=== PATIENT | male | born 1930 | race Caucasian/White ===

== ENCOUNTER 2016-08-09 06:15 | Day surgery (SDC) | payer MEDICARE ==
[~2016-08-09] VITALS: Ht 180.3 cm; Wt 85.0 kg
[2016-08-09] VITALS (8 sets, daily range): BP systolic 104–135; BP diastolic 60–71; PULSE 61–68; RESP 8–16; O2SAT 93–98
[~2016-08-09 06:15] MED LIST: ACET325C PO; ASPI-973 PO; BISA-67 PO; BISA10SU61 RC; CHOL100043 PO; CYAN500 PO; DICL100G8 TOPICAL; EMOL226L TOPICAL; Gentamicin 80 mg/50 mL D5W IV ONE; Lactated Ringer's 1,000 ML IV SCH; MAGN400O4 PO; MULT1CAP33 PO; RIVA1PAT TRANSDERM; SPIR25TA3 PO; SULI200T79 PO
[2016-08-09] MEDS ORDERED: fentaNYL-PF 50 mCg/mL 2 mL Inj ONE (06:16)
[2016-08-09] MEDS ORDERED: Glycopyrrolate 0.2 mg/mL 5 mL Inj ONE (06:16)
[2016-08-09] MEDS ORDERED: Propofol 10,000 mCg/mL 20 mL Inj ONE (06:16)
[2016-08-09] MEDS ORDERED: Lactated Ringer's 1,000 ML IV ONE ×2 (07:22→09:32)
[2016-08-09] MEDS ORDERED: Vancomycin 1,000 mg/200 mL D5W IV ONE (07:23)
--- NOTE | 2016-08-09 07:46 | PCM.HPANE ---
Patient Data Surgeon Admitting Provider: Attending Provider:Maria E Billy MD Primary Care Physician:Becki Miller MD Other Provider:Debbi Kamara Anesthesia Reason for Visit Uretheral Stricture Ht/WT & BMI Height (Feet): 5 Height (Inches): 11.00 Weight (Kilograms): 85.000 Body Mass Index 26.00 Allergies Coded Allergies: pregabalin (Verified Allergy, Unknown, unknown, 08/04/16) gabapentin (Verified Adverse Reaction, Severe, hallucinations, 08/04/16) Uncoded Allergies: FLAMOA (Allergy, Unknown, 01/14/14) Past Anesthesia History Anesthesia History: Denies:: Anesthesia Reactions, Malignant Hyperthermia Diabetes History Hx Diabetes?: No MRSA MRSA: No Medications Blood Thinner: Aspirin Hypertension Medication: No Home Meds Incl Beta Josep: No Reported Medications Emollient Combination No.40 (Cetaphil)226 Gm Ejihmc416 Gm TP DAILY 08/08/16 Magnesium Hydroxide (Milk of Magnesia)400 Mg/5 Ml Oral.susp30 Ml PO DAILY PRN PRN 08/08/16 Bisacodyl (Dulcolax Rectal)10 Mg Supp.rect10 Mg RC DAILY PRN For Constipation 30 Days Ref 0 08/08/16 Bisacodyl (Dulcolax)5 Mg Tablet.dr5 Mg PO DAILY PRN For Constipation Ref 0 08/08/16 Diclofenac Gel (Voltaren Gel)100 Gm Tube1 Applic TP TID #1 TUBE 08/08/16 Rivastigmine Patch (Exelon Patch)4.6 Mg Patch4.6 Mg TRANSDERM DAILY 08/08/16 Acetaminophen 325 Mg Mltpqzb102-043 Mg PO Q4-6H PRN PRN 08/04/16 Cholecalciferol (Vitamin D3) (Vitamin D)1,000 Unit Tablet3,000 Unit PO QAM #1 BOTTLE Ref 0 09/15/15 Aspirin 81 Mg Njokjr29 Mg PO QAM Ref 0 08/09/15 Cyanocobalamin (Vitamin B12)1,000 Mcg Tablet1,000 Mcg PO QAM 10/13/14 Sulindac 200 Mg Jwpbkf058 Mg PO BID 01/15/14 Spironolactone 25 Mg Vqgktf39 Mg PO QAM 01/15/14 Multivitamin (Multivitamins)1 Each Capsule1 Each PO QAM 01/15/14 Discontinued Reported Medications Vancomycin 125 Mg Wwejiov459 Mg PO VARIES QID X 14 DAYS, THEN BID X 7 DAYS, THEN DAILY X 7 DAYS, THEN EVERY OTHER DAY X 7 DAYS, THEN EVERY 3 DAYS X 2 WEEKS 08/04/16 Sennosides (Senna)8.6 Mg Wguuoh46.2 Mg PO DAILY PRN For Constipation 08/04/16 Polyethylene Glycol 3350 (Miralax)17 Gm Powd.pack17 Gm PO DAILY PRN PRN 08/04/16 Nystatin (Nystop)60 Gm Zklacu33 Gm TP BID 08/04/16 Loratadine (Claritin)10 Mg Dbvrjqp73 Mg PO DAILY PRN PRN Ref 0 08/04/16 Fluocinonide 0.05% Cream 15 Gm Cream..g.1 Applic TP BID PRN PRN Ref 0 08/04/16 Fluoxetine 40 Mg Umgunvc89 Mg PO QAM Ref 0 09/15/15 Ferrous Sulfate 325 Mg Grwmeq105 Mg PO QAM 30 Days Ref 0 01/15/14 Docusate Sodium 250 Mg Dbpqelw518 Mg PO DAILY 30 Days Ref 0 01/15/14 Diclofenac Gel (Voltaren Gel)100 Gm Tube1 Applic TOPICAL TID apply to right knee TID for comfort 12/29/15 Discontinued Scripts Ciprofloxacin (Cipro)500 Mg Kunbxv338 Mg PO BID #14 TABLET Ref 0 Prov:Deejay Goldman MD 06/01/16 Rivastigmine Patch (Exelon Patch)4.6 Mg Patch1 Patch TOPICAL Q24H #30 Prov:Feliciano Sadler MD 01/04/16 History History of ENT Problems?: Yes HEENT History: Positive for:: Cataracts (S/P B/L EXTRACTIONS) Dysphagia (history of) Hearing Problem Sinus Problem (SEASONAL ALLERGIES HX NASAL FX) Hx of Heart Problems?: Yes Cardiovascular History: Positive for:: 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) Edema (chronic edema) Hypertension Peripheral Vascular (HX OF VENOUS STASIS ULCERATIONS LE'S) Valvular Heart Disease (MILD MR) Denies:: Congestive Heart Failure Heart Murmur (ECHO 10/2010 EF 55-60%) Hx of Respiratory Problem?: Yes Respiratory History: Positive for:: Pneumonia Denies:: Tuberculosis Use of C-PAP Machine Hx Neurologic Problems?: Yes Neurological History: Positive for:: Alzheimer's Disease (POSSIBLY) Dementia (WORSENING MEMORY) Parkinson's Disease TIA (2001) Other Neurological Pertinent: PERIPHERAL NEUROPATHY, dementia Hx of GI Problems?: Yes Gastrointestinal History: Positive for:: Gastrointestinal Bleeding (HX colitis R/T constipation) Hx of Problems?: Yes Genitourinary History: Positive for:: Urinary Tract Infection (uti, urine retension, chronic indwelling cateter) Other Pertinent History: URETHRAL STRICTURE=CURRENT PROBLEM ED VISIT 05/2016 FOR INABILTY TO REPLACE GEE CATH-CONSULT PER DR. BILLY Male Hx: Positive for:: Prostate Problems (enlarged prostate) Denies:: Scrotal Mass Testicular Surgery Skin History: Positive for:: History Skin Disorders? (h/o LLE cellulitis) Pressure Ulcers (CURRENT LT 5TH TOE-DR. 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) Hospitalization (multiple times for falls) Denies:: Endocrine Disease Thyroid Disease History Blood Transfusions: Denies:: Blood Transfuse Reaction Blood Transfusions Hx Diabetes: No Hx Alcohol Use: YesHx Substance Use: No Smoking Status: Former Smoker Have You Smoked inLast 12 mo: No Stop/Bang S-Snoring: Do You Snore Loudly: No T-Tired: feel tired, fatigued: Yes O-Obsered: Observed not breath: No P-Blood Pressure: treated: Yes B- Body Mass Index > 35 kg/m2: No A- Age over 50: Yes N- Neck Large Circumference: No G- Gender Male: Yes HUNTER Total Score: 4 HUNTER Risk Assessment: High Risk, =/>3 Yes HUNTER Category 4 OutPt Procedure: Yes Risk Assessment Category Category 1A: Patient has history of documented sleep apnea, and HAS NOT received any narcotic, sedative or anesthesia administration during this stay. Category 1B: Patient has history of documented sleep apnea, and HAS received any narcotic , sedative or anesthesia administration during this stay Category 2: Patient has SUSPECTED Obstructive Sleep Apnea, and HAS received any narcotic , sedative or anesthesia administration during this stay. Category 3: Patient has SUSPECTED Obstructive Sleep Apnea and HAS NOT received narcotic, sedative or anesthesia administration during this stay. Category 4: Outpatient in Procedural Areas with known sleep apnea or who screen positive for High Risk via the STOP/BANG questionnaire. Exam Exam Vital Signs Vital Signs Date Time Temp Pulse Resp B/P Pulse Ox O2 Delivery O2 Flow Rate FiO2 08/09/16 07:10 35.7 68 14 104/62 98 Room Air General Appearance: Alert, Oriented X3, Cooperative, No Acute Distress HEENT/AIRWAY: MP 2 Lungs: Clear to Auscultation, Normal Air Movement Heart: Exam Unremarkable, Regular Rate/Rhythm, No Murmurs/Rubs/Gallops Meds/Labs/Diagnostics Admission Meds Current Medications Lactated Ringer's (Lr) 1,000 ml @ ud STK-MED ONCE IV Last administered on t 07:22; Start 08/09/16 at 07:22; Stop 08/09/16 at 07:27; Status DC Plan Impression Patient chart reviewed, patient interviewed and anesthestic plan with risks, benefits, and alternatives discussed, and informed consent obtained. NPO Status: 08/08MN ASA Physical Status: ASA3 Severe Disease Anesthetic Plan: GA Bene/Risks/Altern/Consents: Yes HP Complete Prior to Induction: Yes Kota Mai MD Aug 09, 2016 07:46
[2016-08-09] MEDS ORDERED: Gentamicin 40 mg/mL 2 mL Inj IRRIGATION ONE (08:36)
[2016-08-09] MEDS ORDERED: Lactated Ringer's 500 ML IV PRN (08:44)
[2016-08-09] MEDS ORDERED: Lactated Ringer's 1,000 ML IV SCH (08:44)
[2016-08-09] MEDS ORDERED: fentaNYL-PF 50 mCg/mL 2 mL Inj IVPUSH PRN (08:45)
[2016-08-09] MEDS ORDERED: Phenylephrine 10,000 mCg/mL Inj IVPUSH PRN (08:45)
[2016-08-09] MEDS ORDERED: EPHEDrine Sulfate 50 mg/mL Inj IVPUSH PRN (08:45)
[2016-08-09] MEDS ORDERED: hydrALAZINE 20 mg/mL Inj IVPUSH PRN (08:45)
[2016-08-09] MEDS ORDERED: HYDROmorphone 1 mg/mL Inj IVPUSH PRN (08:45)
[2016-08-09] MEDS ORDERED: Dexamethasone 4 mg/mL Inj IVPUSH PRN (08:45)
[2016-08-09] MEDS ORDERED: Labetalol 5 mg/mL 4 mL Inj IV PRN (08:45)
[2016-08-09] MEDS ORDERED: MetoCLOpramide 5 mg/mL 2 mL Inj IVPUSH PRN (08:45)
[2016-08-09] MEDS ORDERED: Ondansetron 2 mg/mL 2 mL Inj IVPUSH PRN (08:45)
[2016-08-09] MEDS ORDERED: Atropine 0.4 mg/mL Inj IVPUSH PRN (08:45)
[2016-08-09] MEDS ORDERED: Phenazopyridine 97.5 mg Tablet PO PRN (09:10)
[2016-08-09] MEDS ORDERED: HYDROcodone-APAP 5-325 mg Tablet PO PRN (09:10)
[2016-08-09] MEDS ORDERED: Ondansetron 8 mg ODT Tablet PO PRN (09:10)
--- NOTE | 2016-08-09 09:32 | PCM.ANEP1 ---
Post Anesthesia Phase 1 PACU Phase 1 Assessment Vital Signs Vital Signs Date Time Temp Pulse Resp B/P Pulse Ox O2 Delivery O2 Flow Rate FiO2 08/09/16 09:25 65 12 105/60 93 Room Air 08/09/16 09:20 63 12 113/63 93 Room Air 08/09/16 09:15 64 8 116/63 95 Room Air 08/09/16 09:10 36.5 61 13 135/71 97 Simple Mask 6 08/09/16 07:10 35.7 68 14 104/62 98 Room Air Anesthetic Administered: GA Level of Alertness: Awake, talking MIRANDA's with Equal Strength: Yes Pain: No Nausea or Vomiting: No Lungs: Clear to Auscultation, Normal Air Movement Summary doing quite well mentally considering his pre op dementia Kota Mai MD Aug 09, 2016 09:32
--- NOTE | 2016-08-09 12:35 | PCM.ANEP2 ---
Post Anesthesia Evaluation ASA/CMS Post Anesthesia VS in Patient's Normal Range?: Yes Resp Stable; Airway Patent?: Yes CV Function & Hydration Stable: Yes Mental Status Recovered?: Yes Pain control Satisfactory?: Yes N/V Control Satisfactory?: Yes Kota Mai MD Aug 09, 2016 12:35
--- NOTE | 2016-08-10 14:00 | OP ---
[address] [address] OPERATIVE REPORT PATIENT: SANTY CACERES : 1930 MR#: [id number] ADMIT: 08/09/2016 JOB ID: [id number] DATE OF SURGERY: 08/09/2016 PROCEDURE NAME: 1. Direct visual internal urethrotomy. 2. Gentamicin irrigation. SURGEON: Maria E Billy MD. ANESTHESIA: General. PREOPERATIVE DIAGNOSIS(ES): 1. Urethral stricture. 2. Urinary retention. 3. History of bladder infection. POSTOPERATIVE DIAGNOSIS(ES): 1. Urethral stricture. 2. Urinary retention. 3. History of bladder infection. INDICATIONS: The patient is an 86-year-old gentleman with a history of difficult catheter placement, known urethral stricture disease, chronic indwelling Biswas catheter, presenting at least twice to the emergency department when his [facility] was unable to catheter him and requiring a flexible cystoscopy with some difficulty to get a catheter in over a wire. He was treated with culture-specific antibiotics prior to his surgery with plans to in irrigate with a gentamicin solution at the time of the procedure. PROCEDURE IN DETAIL: After appropriate informed consent was obtained, the patient was brought to the operating room. He received IV culture-specific antibiotics. SCD were placed. Adequate general anesthesia was induced. He was carefully placed in the dorsal lithotomy position. All pressure points carefully padded. Cleaned, prepped, and draped in the usual sterile fashion. First, a wire was advanced through the indwelling catheter, which was then removed, and a 17-[place] cystoscope was introduced into the patient's urethra to get up to the level several narrowed area within the bulbar urethra and more proximal. We then changed out to the direct vision sheath, and this was advanced up to the areas of narrowing leaving the Amplatz Super Stiff wire in as a safety wire. We incised extensively at the 12 o'clock position throughout the area that was narrowed in order to get the urethra widely opened. There was some mild to moderate bleeding. Once the urethra was nicely opened, we irrigated clots out. Gentamicin solution was used throughout the case. We then removed the cystoscope and introduced a 22-[place]ill tip catheter over the wire. We removed the wire itself, inflated the balloon and leaving the catheter in good condition. We then irrigated the bladder out further with another 1500 cc of gentamicin solution to remove the last of the clots. Urethra was irrigated out copiously with this as well, leaving the catheter ultimately to gravity drainage with light pink urine. The patient tolerated the procedure very well. He was awakened and taken in stable condition to the postanesthesia care unit.
== END 2016-08-09 23:59 | disposition home or self-care (01) ==
LOC: SAS 06:15
PROVIDERS: ATTEND Urology
DX: N35.9 Urethral stricture, unspecified (principal); R33.9 Retention of urine, unspecified; Z87.440 Personal history of urinary (tract) infections; N40.1 Benign prostatic hyperplasia with lower urinary tract symptoms; F03.90 Unspecified dementia, unspecified severity, without behavioral disturbance, psychotic disturbance, mood disturbance, and anxiety; I10 Essential (primary) hypertension; M19.90 Unspecified osteoarthritis, unspecified site; G60.9 Hereditary and idiopathic neuropathy, unspecified; E66.9 Obesity, unspecified; Z79.82 Long term (current) use of aspirin; Z87.891 Personal history of nicotine dependence
CPT/HCPCS: 52276; C1729; J1580; J3010; J7120

== ENCOUNTER 2016-09-13 10:17 | Inpatient (IN) | payer MEDICARE ==
[2016-09-13] VITALS (8 sets, daily range): BP systolic 100–129; BP diastolic 52–74; PULSE 101–123; RESP 16–36; O2SAT 91–96
[~2016-09-13] VITALS: Ht 167.6 cm; Wt 89.4 kg
[~2016-09-13 10:17] MED LIST changes: -Gentamicin 80 mg/50 mL D5W IV ONE; -Lactated Ringer's 1,000 ML IV SCH
[2016-09-13] MEDS ORDERED: 0.9% Sodium Chloride 1,000 ML IV ONE (10:23)
[2016-09-13] MEDS ORDERED: Albuterol-Ipratropium 3 mL Inhalation Solution NEB ONE ×2 (10:25→10:35)
--- NOTE | 2016-09-13 10:26 | ED.REPORT ---
HPI-Altered Mental Status Date of Service Sep 13, 2016 ED Provider: Moo Fay DO The patient is an 86 year old male with history of GI bleeds, UTI, diabetes, dementia, and Parkinson's disease, who was brought to the emergency department by EMS for altered mental status. The patient lives at [facility] and is normally up moving around and talking. He became altered sometime yesterday but the timing is unclear. Medics reports BP of 122/83, HR 120, O2 sat of 88 on 2 L improved to 93 on nonrebreather. The patient is unable to provide any history at this time. The patient is DNR. Nursing Notes Stated Complaint: ALTERED MENTAL STATUS Nursing Notes Reviewed: Yes Allergies: Coded Allergies: pregabalin (Verified Allergy, Unknown, unknown, 09/13/16) gabapentin (Verified Adverse Reaction, Severe, hallucinations, 09/13/16) Uncoded Allergies: FLAMOA (Allergy, Unknown, 01/14/14) Scheduled Aspirin (Aspirin) 81 Mg Tablet 81 MG PO QAM Cholecalciferol (Vitamin D3) (Vitamin D) 1,000 Unit Tablet 3,000 UNIT PO QAM Cyanocobalamin (Vitamin B12) 1,000 Mcg Tablet 1,000 MCG PO QAM Diclofenac Gel (Voltaren Gel) 100 Gm Tube 1 APPLIC TOPICAL TID apply to rt.knee for comfort Rivastigmine Patch (Exelon Patch) 4.6 Mg Patch 4.6 MG TRANSDERM DAILY Spironolactone (Spironolactone) 25 Mg Tablet 25 MG PO QAM Sulindac (Sulindac) 200 Mg Tablet 100 MG PO BID Scheduled PRN Acetaminophen (Acetaminophen) 325 Mg Capsule 325-650 MG PO Q4-6H PRN PRN PRN Bisacodyl (Dulcolax) 5 Mg Tablet.dr 5 MG PO DAILY PRN PRN For Constipation Bisacodyl (Dulcolax Rectal) 10 Mg Supp.rect 10 MG RC DAILY PRN PRN For Constipation Emollient Combination No.40 (Cetaphil) 226 Gm Lotion 1 APPLIC TOPICAL DAILY PRN PRN dry skin Magnesium Hydroxide (Milk of Magnesia) 400 Mg/5 Ml Oral.susp 30 ML PO DAILY PRN PRN PRN General Time Seen by MD: 10:18 Chief Complaint Decreased responsiveness, Not acting right Hx Obtained From: EMS Unable to Obtain Hx: Patient condition Arrived By: Ambulance Sudden in Onset?: Yes Onset Occurred: Yesterday Symptom Duration: Since onset Progression since Onset: Constant Recent Healthcare: No recent hospitalization Past Medical History Past Medical History Notes: Past Medical History 1. 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 2. Bilateral foot neuropathy, specifics unknown. 3. Depression. 4. Back surgery in 1984. 5. Known carotid stenosis. 6. Reported B12 deficiency. 7. Chronic edema with stasis changes. 8. History of left lower extremity cellulitis. 9. Bad varicose veins. 10. Known to have frequent falls. 11. Parkinsonism 12. Chronic Obstructive Uropathy, BPH (chronic Biswas) 13. ho recurrent C Diff Reports: Diabetes mellitus Reports: GI bleed, Urinary tract infection Past Surgical History right hip replacement Reports: Back/neck surgery Family History Noncontributory Smoking History Former Smoker Social History POLST indicates DNR in setting of arrest, otherwise limited interventions (dated 09-03-15) Resides at [facility] Alcohol Use: Denies alcohol use Other Social History: Good social support, [place], Local resident Occupation Retired trustee of estate Ambulatory Status Independent Review of Systems Unable to Obtain ROS Patient condition, Mental status Physical Exam Initial Vital Signs Vital Signs (First) Date Time Temp Pulse Resp B/P Pulse Ox O2 Delivery O2 Flow Rate FiO2 09/13/16 10:20 36.8 119 28 129/74 91 Room Air 09/13/16 11:15 7 Initial VS: Reviewed Extremities: No swelling, No tenderness Skin: Warm, Dry, No cyanosis Alertness: Positive: Confused, Responds to pain stimuli Head / Eyes: Atraumatic, Normocephalic, PERRL, EOMI Neck: Full range of motion, No midline vertebral tend Respiratory / Chest: Breath sounds = bilat, No respiratory distress, No rhonchi , No wheezing Rales / Rhonchi: Positive: Rales diffuse Cardiovascular: Regular rhythm, Heart sounds NL, No gallop, No murmurs, No rubs , Peripheral circulation NL Heart Rate / Rhythm: Positive: Tachycardia Neurologic: No motor deficits, No sensory deficits Mental Status: Positive: Confused Disoriented, altered. No focal findings. Face symmetric. Motor and sensory intact to all 4 extremities. ENT: Airway patent What appears to be coffee ground emesis in the corner of his mouth. Abdomen: No hernia, No palpable mass, No pulsatile mass Bowel Sounds / Distention: Positive: Bowel sounds tympanitic, Distention moderate Rectum / Perineum: Atraumatic, No gross blood Soft stool in the rectal vault. Gastric contents positive for occult blood on gastrocult Interpretation & Diagnostics Lab Results Interpretation Result Diagram: 09/13/16 1250 09/13/16 1020 Test 09/13/16 10:20 09/13/16 12:50 White Blood Count 7.4th/mm3 (3.8-10.1) Red Blood Count 5.61mil/mm3 (4.40-5.80) Mean Corpuscular Volume 84.1fL (81-100) Mean Corpuscular Hemoglobin 28.2pg (27.0-35.0) Mean Corpuscular Hemoglobin Concent 33.5% (32.0-37.0) Red Cell Distribution Width 14.4% (12.3-15.4) Platelet Count 182bil/L (150-400) Neutrophils (%) (Auto) 88.8% (40-74) Lymphocytes (%) (Auto) 5.7% (14-46) Monocytes (%) (Auto) 5.3% (4-12) Eosinophils (%) (Auto) 0% (0-5) Basophils (%) (Auto) 0.1% (0-3) Sodium Level 138mEq/L (134-144) Potassium Level 4.0mEq/L (3.5-5.2) Chloride Level 99mEq/L (97-108) Carbon Dioxide Level 21mmol/L (18-29) Blood Urea Nitrogen 35mg/dL (8-27) Creatinine 0.67mg/dL (0.76-1.27) Estimat Glomerular Filtration Rate 120mL/min (>59) Glucose Level 195mg/dL (60-99) Lactic Acid Level 2.2mmol/L (0.4-2.0) Calcium Level 9.7mg/dL (8.5-10.1) Magnesium Level 1.8mg/dL (1.6-2.6) Total Bilirubin 1.1mg/dL (0.0-1.2) Aspartate Amino Transf (AST/SGOT) 23U/L (0-50) Alanine Aminotransferase (ALT/SGPT) 15U/L (0-44) Alkaline Phosphatase 114U/L (25-160) Troponin T 0.010ug/L (0.0-0.011) Pro-B-Type Natriuretic Peptide 367.3pg/mL (0-486) Total Protein 7.3g/dL (6.4-8.4) Albumin 4.0g/dL (3.4-5.0) Procalcitonin 0.29ng/mL (0.00-0.08) Hemoglobin 14.0g/dL (13.8-17.2) Hematocrit 42.0% (41.0-50.0) ECG Interpretation ECG Interpretation: Sinus tachycardia LAFB Nonspecific ST changes Similar to previous taken on 12/29/2015 Time: 10:35 Interpreted by: ED physician X-Ray Chest Interpretation Chest Xray Interpretation: IMPRESSION: Left basilar patchy airspace opacity which could represent atelectasis, aspiration or pneumonia Dictated by: Fior Garcia MD, PhD on 09/13/2016 at 11:22 Interpretation / Wet Read by: Interpret - Radiologist X-Ray Abdominal Interpretation IMPRESSION: Left basilar patchy airspace opacity which could represent atelectasis, aspiration or pneumonia Dictated by: Fior Garcia MD, PhD on 09/13/2016 at 11:22 Interpretation / Wet Read by: Interpret - Radiologist CT Head Interpretation IMPRESSION: No acute intracranial disease process. Dictated by: Fior Garcia MD, PhD on 09/13/2016 at 10:49 Study: Head CT no contrast Interpretation / Wet Read by: Interpret - Radiologist CT Abd / Pelvis Interpretation IMPRESSION: 1. Fecal impaction within the rectum. There is mild associated rectal thickening, consistent with proctitis. There is moderate to severe associated distention of the rectum and distal sigmoid colon. 2. Normal appendix. 3. Bibasilar pneumonia. 4. 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 Dictated by: Jose Antonio Mccarty M.D. on 09/13/2016 at 12:25 Interpretation / Wet Read by: Interpret - Radiologist Re-Eval/Medical Decision Med Decision/Clinical Course Family patient has altered mental status likely due to infection, he is nonfocal there are no obvious stroke findings and brain CT is negative. He has bibasilar pneumonia as well as an upper GI bleed. He is maintaining a normal blood pressure with IV fluids and normal oxygenation with nasal cannula after having received multiple nebulizer treatments. CT scan shows reported fecal impaction however he has soft stool in the rectal vault. Patient will be admitted on broad-spectrum antibiotics and a Protonix drip. Source of Hx: Old records, EMS Re-Evaluation/Progress : Time of Eval: 11:30 Re-Evaluation/Progress Note: Rechecked the patient. He is more alert. Discussed plan for admission. Consultation #1: Referral / Consult Name: MyronBenji oscar Consulted With: Hospitalist Call Returned at: 12:59 Supervisor [employer]: Will see patient, Agrees with eval, Agrees with plan, Accepts admit Consultation #2: Referral / Consult Name: Joelle Luz MD Call Returned at: 13:28 [employer]visor [employer]: Will see patient, Agrees with eval, Agrees with plan Note: Spoke with the on-call dairy and food laboratory assistant. He agrees to consult. Recommends PPI drip and following the H&H. Counseled Regarding: Diagnosis, Lab results, Need for admission Patient Discharge & Departure Impression: Primary Impression: Altered mental status Altered mental status type: unspecified Qualified Code: R41.82 - Altered mental status, unspecified Additional Impressions: Pneumonia Pneumonia type: due to unspecified organism Laterality: bilateral Lung location: lower lobe of lung Qualified Code: J18.9 - Pneumonia, unspecified organism Sepsis Sepsis type: sepsis due to unspecified organism Qualified Code: A41.9 - Sepsis, unspecified organism Hypoxia Upper GI bleed Disposition: ADMITTED TO HOSPITAL Discharge Condition All VS Reviewed: Yes Condition: Stable Referrals: Becki Miller MD (PCP) Scribe Attestation Portions of this note were transcribed by Kenia Mitchell. I, Dr. Fay personally performed the history, physical exam and medical decision-making; I reviewed and confirmed the accuracy of the information in the transcribed note. Signed by: Rodri Gaspar, 09/13/2016 at 1345. copies to: Becki Miller MD, Timothy S DO Sep 13, 2016 10:26 Kenia Mitchell Sep 13, 2016 10:28
[2016-09-13 10:38] LABS: BASOPHILS % (AUTO) 0.1 % (0-3); EOSINOPHILS % (AUTO) 0 % (0-5); MONOCYTES % (AUTO) 5.3 % (4-12); Mean Corpuscular Hemoglobin 28.2 pg (27.0-35.0); Mean Corpuscular Volume 84.1 fL (81-100); NEUTROPHILS % (AUTO) 88.8 % (40-74); Platelet Count 182 bil/L (150-400)
--- NOTE | 2016-09-13 10:52 | DRSVH ---
PROCEDURE: CT BRAIN WITHOUT CONTRAST ([id number]) INDICATIONS: Acute decrease level of consciousness. TECHNIQUE: Noncontrast 4.5 mm thick angled axial sections acquired from the foramen magnum to the vertex, with c oronal reformats. COMPARISON: [facility], CT, BRAIN W/O CONTRAST, 07/29/2014, 2:31. [facility] , CT, BRAIN W/O CONTRAST, 01/15/2014, 2:09. [facility], CT, BRAIN W/O CONTRAST, 07/26/2013 , 20:00. CT, BRAIN W/O CONTRAST, 10/07/2010, 21:48. CT, BRAIN W/O CONTRAST, 08/21/2010, 10:55. CT, B RAIN W/O CONTRAST, 05/01/2010, 8:01. MR, STROKE PROTOCOL (PNL), 01/12/2010, 20:45. CT, BRAIN W/O CON TRAST, 01/12/2010, 10:59. [facility], CT, BRAIN W/O CONTRAST, 01/05/2010, 8:44. FINDINGS: Image quality: Excellent. CSF spaces: Basal cisterns are patent. No extra-axial fluid collections. The ventricles are symmet slim in size and shape. Brain: No intracranial bleeds or masses. There is cerebral volume loss for age, with resultant vent ricular and sulcal prominence. There are periventricular and deep white matter chronic small vessel ischemic changes. There is intracranial internal carotid artery atherosclerosis. Skull and face: Calvarium and visualized facial bones appear intact, without suspicious lesions. Sinuses: Visualized sinuses and mastoids are clear. IMPRESSION: No acute intracranial disease process. Dictated by: Fior Garcia MD, PhD on 09/13/2016 at 10:49 Approved by: Fior Garcia MD, PhD on 09/13/2016 at 10:50
[2016-09-13 11:12] LABS: TROPONIN T 0.01 ug/L (0.0-0.011)
[2016-09-13 11:23] LABS: Magnesium 1.8 mg/dL (1.6-2.6)
--- NOTE | 2016-09-13 11:24 | DRSVH ---
PROCEDURE: X-RAY ABDOMEN DECUBITUS, LEFT INDICATIONS: hypoxia, abd distention TECHNIQUE: One view of the abdomen acquired. COMPARISON: None. FINDINGS: Surgical changes and devices: None. Bowel: Bowel gas pattern nonspecific Soft tissues: No suspicious abdominal calcifications. Visualized solid organ contours appear normal in size. Bones: No suspicious bony lesions. IMPRESSION: No free air identified. Nonspecific bowel gas pattern. Patient's symptoms persist or wors en, then repeat imaging or advanced imaging such as CT scan is warranted. Dictated by: Fior Garcia MD, PhD on 09/13/2016 at 11:21 Approved by: Fior Garcia MD, PhD on 09/13/2016 at 11:22
--- NOTE | 2016-09-13 11:25 | ABG ---
DateTimeAnalyzed 11:18:00 -_ pH ____7.451 - 7.350 7.450 pCO2 ___37.3__ -mmHg 35.0 45.0 pO2 ___67.9__ -mmHg 70.0 100 HCO3- ___25.6__ -mmol/L 22.0 26.0 ABE ____2.2__ -mmol/L -2.0 2.0 tHb ___15.8__ -g/dL 12.0 18.0 O2Hb ___92.1__ -% 95.0 COHb ____1.7__ -% 1.5 MetHb ____0.8__ -% 0.4 1.5 sO2 ___94.5__ -% 25.0 FIO2 ___60.0__ -% Drawn By gj - Device 2 L/M 6 - Oxygen Device 2 __CANNULA - Date/Time Notified____ 11:24:00 -_ Spontaneous_RR ___36.0__ -b/min Liter_Flow ____9.0__ -L/min Oxygen Device 1 NEBULIZER - Notified Whom __OKELLEY - B 761 -mmHg tO2 ___20.4__ -Vol% Oj test _Positive -
--- NOTE | 2016-09-13 11:25 | DRSVH ---
PROCEDURE: X-RAY CHEST ONE VIEW ([id number]) INDICATIONS: HYPOXIA, ABDOMEN DISTENTION TECHNIQUE: One view of the chest was acquired. COMPARISON: [facility], CR, XR CHEST 1VW (PORTABLE), 12/29/2015, 9:39. FINDINGS: Surgical changes and devices: None. Lungs and pleura: No pleural effusions or pneumothorax. Patchy opacity noted in the left lung base w hich could represent atelectasis, aspiration or pneumonia. Mediastinum: Mediastinal contours appear normal. Heart size is normal. Bones and chest wall: No suspicious bony lesions. Overlying soft tissues appear unremarkable. IMPRESSION: Left basilar patchy airspace opacity which could represent atelectasis, aspiration or pne [facility] Dictated by: Fior Garcia MD, PhD on 09/13/2016 at 11:22 Approved by: Fior Garcia MD, PhD on 09/13/2016 at 11:23
[2016-09-13] MEDS ORDERED: Linezolid Inj 600 MG in IV Premix 1 EACH IV ONE (11:30)
[2016-09-13] MEDS ORDERED: Piperacillin-Tazo 3.375 Gm Inj 3.375 GM in Dextrose 5% Minibag Plus 50 ML IV ONE (11:30)
[2016-09-13] MEDS ORDERED: levoFLOXacin Inj 750 MG in IV Premix 1 EACH IV ONE (11:30)
[2016-09-13] MEDS ORDERED: Pantoprazole Inj 80 MG, Pharmacy To Mix 1 EA in 0.9% Sodium Chloride 80 ML IV ONE ×2 (12:25)
[2016-09-13] MEDS ORDERED: Pantoprazole 4 mg/mL 10 mL Inj IVPUSH ONE (12:25)
--- NOTE | 2016-09-13 12:30 | DRSVH ---
PROCEDURE: CT ABDOMEN AND PELVIS WITH CONTRAST ([id number]) INDICATIONS: abd distention, sepsis TECHNIQUE: After the administration of intravenous contrast, 5 mm thick sections acquired from the diaphragm to the symphysis. 5 mm coronal and sagittal reformats were acquired. For radiation dose reduction, the following was used: automated exposure control, adjustment of mA and/or kV according to patient siz e. COMPARISON: [facility], CT, CT ABD PELVIS W CON, 08/09/2015, 11:15. [facility], CT, ABD/PELVIS W/CON (PNL), 01/14/2014, 17:00. [facility], CT, ABD/PELVIS W/CON (PNL) , 03/29/2010, 18:30. FINDINGS: Image quality: Excellent. ABDOMEN: Lung bases: There is moderate patchy bibasilar airspace opacity, consistent with atypical pneumonia. Heart size is normal. Solid organs: Liver and spleen are normal in size and enhancement. Gallbladder is within normal esparza its. Biliary system is non dilated. Pancreas enhances normally. No adrenal nodules. Kidneys demon strate normal size and enhancement, without hydronephrosis. Peritoneum and bowel: A moderate hiatal hernia is present. Small bowel is nondistended. Appendix is normal. The right colon is within normal limits. There is moderate distention of the transverse colon . The descending colon is mildly distended. The proximal and mid sigmoid colon are mildly distended. There is moderate distention of the distal descending colon, and severe distention of the rectum. The re is a large amount of stool within the distal sigmoid colon and rectum, which are moderately to sev erely distended. There is mild diffuse thickening of the rectal wall.. No free fluid or air. Nodes and vessels: No retroperitoneal or mesenteric adenopathy by size criteria. Aorta and inferior vena cava are normal in size. Miscellaneous: No ventral hernias. PELVIS: Genitourinary: Bladder wall thickness is normal. Miscellaneous: No inguinal hernias or adenopathy. Bones: No suspicious bony lesions. Severe right hip joint space narrowing. There is flattening of t he right femoral head, as before, possibly due to prior avascular necrosis. Left hip arthroplasty has been performed. No vertebral body compression fractures. IMPRESSION: 1. Fecal impaction within the rectum. There is mild associated rectal thickening, consistent with pro ctitis. There is moderate to severe associated distention of the rectum and distal sigmoid colon. 2. Normal appendix. 3. Bibasilar pneumonia. 4. Severe right hip osteoarthritis, possibly secondary to sequelae of right femoral head avascular ne crosis. Dictated by: Jose Antonio Mccarty M.D. on 09/13/2016 at 12:25 Approved by: Jose Antonio Mccarty M.D. on 09/13/2016 at 12:29
[2016-09-13] MEDS: 0.9% Sodium Chloride 1,000 ML IV SCH ×3 (13:00→18:02)
[2016-09-13] MEDS ORDERED: Ondansetron 2 mg/mL 2 mL Inj IVPUSH PRN ×2 (13:05→17:15)
[2016-09-13] MEDS ORDERED: Alum-Mag Hydrox-Simeth 30 mL Suspension PO PRN ×2 (13:05→17:15)
[2016-09-13 14:01] LABS: APPEARANCE,URINE SLIGHTLY CLOUDY (CLEAR,HAZY); COLOR,URINE YELLOW (YELLOW); OCCULT BLOOD,URINE MODERATE (NEGATIVE); PH,URINE 5.5 (5.0-8.0); UROBILINOGEN,URINE NORMAL (NORMAL)
[2016-09-13 15:25] LABS: INR 1.19 ratio
--- NOTE | 2016-09-13 16:25 | NUR ---
[facility] Patient arrived from ER to [facility] at 1430 P-Patient has had change in LOC at [facility]. Hx of dementia I-Protonix drip at 10mls, NS 2/3 bags just completed, broad spectrum antibiotics given ER. Blood and urine cultures pending. E- GI consult due to Hx of upper GI bleed. O2 sat on 4L 93%, HR 104. Family POA ([phone]) to discuss with MD tomorrow limited interventions in care, SW made aware. 5
[2016-09-13] MEDS ORDERED: Polyethylene Glycol (PEG) 17 Gm Powder PO PRN (17:15)
--- NOTE | 2016-09-13 17:32 | PCM.HPMED ---
Subjective Date of Service Sep 13, 2016 Primary Provider: Admitting Physician: Benji Molina Primary Care Physician: Becki Miller MD Attending Physician: Benji Molina Chief Complaint: altered mental status History of Present Illness: History is obtained completely from ED report and prior electronic notes given patient's altered mental status and dementia and no other family members at bedside at this time. Patient is an 86 year old male with history of GI bleeds, chronic Biswas and recurrent UTI, dementia and other medical issues as noted below who according to ED report: "was brought to the emergency department by EMS for altered mental status. The patient lives at [facility] and is normally up moving around and talking. He became altered sometime yesterday but the timing is unclear. Medics reports BP of 122/83, HR 120, O2 sat of 88 on 2 L improved to 93 on nonrebreather. The patient is unable to provide any history at this time. The patient is DNR." In the ED patient's stool guaiac was reported negative but he apparently had an episode of coffee-ground emesis which was guaiac positive. He received a dose of Levo, Linezolid and Zosyn for presumed healthcare associate pneumonia and sepsis. Review of Systems: unable to obtain 2ndry to minimally verbal and responsive at this time. Allergies Coded Allergies: pregabalin (Verified Allergy, Unknown, unknown, 09/13/16) gabapentin (Verified Adverse Reaction, Severe, hallucinations, 09/13/16) Uncoded Allergies: FLAMOA (Allergy, Unknown, 01/14/14) Home Medications Aspirin (Aspirin) 81 Mg Tablet 81 MG PO QAM Cholecalciferol (Vitamin D3) (Vitamin D) 1,000 Unit Tablet 3,000 UNIT PO QAM Cyanocobalamin (Vitamin B12) 1,000 Mcg Tablet 1,000 MCG PO QAM Diclofenac Gel (Voltaren Gel) 100 Gm Tube 1 APPLIC TOPICAL TID apply to rt.knee for comfort Rivastigmine Patch (Exelon Patch) 4.6 Mg Patch 4.6 MG TRANSDERM DAILY Spironolactone (Spironolactone) 25 Mg Tablet 25 MG PO QAM Sulindac (Sulindac) 200 Mg Tablet 100 MG PO BID Scheduled PRN Acetaminophen (Acetaminophen) 325 Mg Capsule 325-650 MG PO Q4-6H PRN PRN PRN Bisacodyl (Dulcolax) 5 Mg Tablet.dr 5 MG PO DAILY PRN PRN For Constipation Bisacodyl (Dulcolax Rectal) 10 Mg Supp.rect 10 MG RC DAILY PRN PRN For Constipation Emollient Combination No.40 (Cetaphil) 226 Gm Lotion 1 APPLIC TOPICAL DAILY PRN PRN dry skin Magnesium Hydroxide (Milk of Magnesia) 400 Mg/5 Ml Oral.susp 30 ML PO DAILY PRN PRN PRN PMH 1. 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 2. Bilateral foot neuropathy, specifics unknown. 3. Depression. 4. Dementia 5. Known carotid stenosis. 6. Reported B12 deficiency. 7. Chronic edema with stasis changes. 8. History of left lower extremity cellulitis. 9. Varicose veins. 10. Gait instability . 11. Parkinsonism 12. Urinary incontinence with secondary skin breakdown (long-term catheter placement as a result.) Surgical History back surgery L5-S1 discectomy, laminectomy left hip avascular necrosis leading to left hip replacement Family History per prior notes non-contributory Social History Hx Alcohol Use: Yes Hx Substance Use: No Hx Tobacco Use: Yes (distant hx) Smoking Status: Former Smoker Exam Vital Signs Vital Sign - Last Date Time Temp Pulse Resp B/P Pulse Ox O2 Delivery O2 Flow Rate FiO2 09/13/16 16:52 Supplement Oxygen 09/13/16 14:50 105 09/13/16 14:19 37.7 18 100/61 96 6.00 Exam When asked by nurse if he has any abdominal pain he says "no" otherwise non- verbal and does not answer any other questions and does not follow any commands. His eyes are closed and does not open his eyes. General: No Acute Distress, Other Head: Normal Eyes: Scleral Anicteric Nose: Dry membranes Mouth: Mucous Membranes Dry Chest & Lungs: Chest Wall Normal, Clear to auscultation & percussion Cardiovascular: Regular Rate/Rhythm Pulses: NL carotid, radial, femoral, DP, PT Abdomen: Non-tender, Non-distended, Normoactive bowel tones, Soft Extremities: No cyanosis/clubbing/edma bilat Skin: Other (skin change in legs bilaterally consistent with chornic venous insufficiency) Neurological: Other (neuro exam limited as noted above) Lymphatic: Other Lymph Nodes (no significant lymphadenopathy noted) Additional Information: Biswas catheter in place small area of superficial ulceration on the right buttock Lab and Diagnostics Result Diagram: 09/13/16 1250 09/13/16 1020 X-Rays, CTs and MRIs Date of Service: 09/13/16 1023 PROCEDURE: X-RAY CHEST ONE VIEW ([id number]) IMPRESSION: Left basilar patchy airspace opacity which could represent atelectasis, aspiration or pneumonia Dictated by: Fior Garcia MD, PhD on 09/13/2016 at 11:22 Approved by: Fior Gracia MD, PhD on 09/13/2016 at 11:23 Date of Service: 09/13/16 1023 PROCEDURE: CT BRAIN WITHOUT CONTRAST ([id number]) IMPRESSION: No acute intracranial disease process. Dictated by: Fior Garcia MD, PhD on 09/13/2016 at 10:49 Approved by: Fior Garcia MD, PhD on 09/13/2016 at 10:50 Date of Service: 09/13/16 1023 PROCEDURE: X-RAY ABDOMEN DECUBITUS, LEFT IMPRESSION: No free air identified. Nonspecific bowel gas pattern. Patient's symptoms persist or worsen, then repeat imaging or advanced imaging such as CT scan is warranted. Dictated by: Fior Garcia MD, PhD on 09/13/2016 at 11:21 Approved by: Fior Garcia MD, PhD on 09/13/2016 at 11:22 Date of Service: 09/13/16 1131 PROCEDURE: CT ABDOMEN AND PELVIS WITH CONTRAST ([id number]) IMPRESSION: 1. Fecal impaction within the rectum. There is mild associated rectal thickening , consistent with proctitis. There is moderate to severe associated distention of the rectum and distal sigmoid colon. 2. Normal appendix. 3. Bibasilar pneumonia. 4. 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 Dictated by: Jose Antonio Mccarty M.D. on 09/13/2016 at 12:25 Approved by: Jose Antonio Mccarty M.D. on 09/13/2016 at 12:29 Assessment & Plan 86 year old male with history of GI bleeds, chronic Biswas and recurrent UTI, dementia presenting from [facility] with reported altered mental status, questionable fever prior to admission, and questionable coffee ground emesis in the ED # Acute altered mental status possibly due to acute encephalopathy from underlying infection and exacerbation of underlying dementia and parkinsonism - further supportive care and treatment as noted below # Questionable acute severe sepsis (reported fever prior to presentation, tachycardia, tachypnea, elevated lactic acid, and altered mental status) with source possible pneumonia vs UTI - Abx treatment as noted below - c/w IV fluid resuscitation - f/u repeat lactic acid until normalize - c/w supportive care - f/u pending cultures - f/u on Tele for now until can verify goals of care # Possible bilateral lower lobe pneumonia (based on CT abdomen reading by radiology) - patient otherwise without significant leukocytosis, negative procalcitonin and without noted cough on exam at this time. He was however, noted to have mild acute hypoxemia with O2 sat dropping to low 90's in the ED that improved with supplemental O2. - I'm going to only continue with IV Zosyn for now and should patient demonstrate further fever, leukocytosis or clinical deterioration will then consider broadening the Abx treatment - consider either repeat CXR or dedicated chest CT in next day or two to further assess # Possible acute and recurrent UTI in setting of chronic Biswas cath. - ? if colonization vs real - urine cultures in the past year have grown either E. Coli or Proteus both sensitive to Augmentin - empiric treatment with IV Zosyn as noted above - f/u pending urine culture # Possible acute upper GI bleed with reported coffee ground emesis in the ED - f/u h/h - IV Protonix while unable to tolerate PO - hold home dose ASA # Fecal impaction within the rectum noted on CT abdomen - per ED report rectal exam demonstrated soft stool - stool softeners when able to tolerate PO # Possible acute dehydration - IVF as noted above - f/u - hold home dose Spironolactone # Alzheimer's Disease - Continue Exelon Patch # Depression - resume home meds when able to tolerate PO # Goals of care. - consider palliative care consult in am - per ED and nursing report who spoke with patient's family members earlier he is DNR/DNI and family does not wish for him to have any invasive procedures or transfusion. will need to clarify in am Expected length of hospital stay is greater than 2 midnights and likely 2-4 days GI Prophylaxis: Proton Pump Inhibitor VTE Prophylaxis: SCDs Resuscitation Status: DNR/DNI:Do Not Resuscitate/Intubate (per ED report) Time spent 45 min Benji Molina Sep 13, 2016 17:32
[2016-09-13] MEDS ORDERED: EMOLLIENT COMBINATION NO 40 TOPICAL PRN (18:15)
--- NOTE | 2016-09-13 19:10 | CONS ---
[address] [address] CONSULTATION REPORT PATIENT: SANTY CACERES : 1930 MR#: [id number] ADMIT: 09/13/2016 JOB ID: [id number] DATE OF SERVICE: 09/13/2016 HISTORY OF PRESENT ILLNESS: I was consulted by the emergency department to see the patient for upper GI bleeding possibly. However, after discussion with the hospitalist, he stated to me that the patient's family's wishes were that no invasive interventions be performed, which included no blood transfusions or endoscopy. Therefore, Dr. Molina stated that consultation with gastroenterology is not needed at this time. If his situation were to change, he will contact me.ecommended PPI drip. HERNANDEZ
[2016-09-13] MEDS: Piperacillin-Tazo 3.375 Gm Inj 3.375 GM in Dextrose 5% Minibag Plus 50 ML IV SCH (20:54)
--- NOTE | 2016-09-13 22:39 | NUR ---
Pain Family at bedside. Reported two different times that the pt verbalized he was uncomfortable. Chong first c/o pain to his "bottom". Pillows repositioned and pt felt relief. Second Chong c/o pain in his "chest". He was currently coughing. Given IV morphine for generalized discomfort. Pt tolerated medication and returned to sleep. Appears comfortable. All cares explained.
[2016-09-14] VITALS (8 sets, daily range): BP systolic 97–132; BP diastolic 46–78; PULSE 56–98; RESP 16; O2SAT 92–96
[2016-09-14] MEDS: 0.9% Sodium Chloride 1,000 ML IV SCH ×3 (04:20→22:16)
[2016-09-14] MEDS: Piperacillin-Tazo 3.375 Gm Inj 3.375 GM in Dextrose 5% Minibag Plus 50 ML IV SCH ×2 (04:28→13:47)
[2016-09-14 05:46] LABS: BASOPHILS % (AUTO) 0.2 % (0-3); EOSINOPHILS % (AUTO) 0 % (0-5); MONOCYTES % (AUTO) 6.5 % (4-12); Mean Corpuscular Hemoglobin 28.8 pg (27.0-35.0); Mean Corpuscular Volume 86.8 fL (81-100); NEUTROPHILS % (AUTO) 77.9 % (40-74); Platelet Count 136 bil/L (150-400)
[2016-09-14 06:00] LABS: INR 1.18 ratio
--- NOTE | 2016-09-14 10:20 | NUR ---
Wounds Dyllan score 10. Skin exam showing healed pressure ulcer scar on R buttock with blanching redness and nonblanching purple spot under heel callus on medial L heel. Pressure ulcer protocol instituted. Turning Q2H and floating heels. Awaiting P500 bed at this time.
[2016-09-14] MEDS ORDERED: Potassium Chloride 20 mEq/15 mL 15mL Oral Soln PO ONE (11:30)
--- NOTE | 2016-09-14 11:52 | PCM.PNMED ---
Subjective Date of Service Sep 14, 2016 Subjective confused - a/ox1 - slow to respond. low grade fever this AM, blood cx ordered - repeat CXR, on IV zosyn - npo now - swallow eval ordered - denies sob, PNA per CT abd on admission Exam Vital Signs Vital Sign - Last Date Time Temp Pulse Resp B/P Pulse Ox O2 Delivery O2 Flow Rate FiO2 09/14/16 10:01 37.6 89 16 102/58 94 Nasal Cannula 4.00 Intake and Output 09/13/16 09/13/16 09/14/16 Cumulative From/Thru 15:00 23:00 07:00 09/13/16 10:50 - 09/14/16 06:28 Intake Total 1200 ml 130 ml 0 ml 1330 ml Output Total 550 ml 400 ml 950 ml Balance 1200 ml -420 ml -400 ml 380 ml Intake Oral 0 ml 0 ml 0 ml IV Total 1200 ml 130 ml 1330 ml Output Urine Total 550 ml 400 ml 950 ml Exam General: No Acute Distress, confused Head: Normal Eyes: Scleral Anicteric Nose: Dry membranes Mouth: Mucous Membranes Dry Chest & Lungs: Chest Wall Normal, scattered coarse BS in lower lobes Cardiovascular: Regular Rate/Rhythm Abdomen: Non-tender, Non-distended, Normoactive bowel tones, Soft Extremities: No cyanosis/clubbing/edma bilat Skin: Other (skin change in legs bilaterally consistent with chornic venous insufficiency) Lymphatic: Other Lymph Nodes (no significant lymphadenopathy noted) Additional Information: Biswas catheter in place small area of superficial ulceration on the right buttock IVs and Medications Medications Reviewed: Medications were reviewed in detail Lab and Diagnostics Result Diagram: 09/14/16 0540 09/14/16 0540 X-Rays, CTs and MRIs Date of Service: 09/13/16 1023 PROCEDURE: X-RAY CHEST ONE VIEW ([id number]) IMPRESSION: Left basilar patchy airspace opacity which could represent atelectasis, aspiration or pneumonia Dictated by: Fior Garcia MD, PhD on 09/13/2016 at 11:22 Approved by: Fior Garcia MD, PhD on 09/13/2016 at 11:23 Date of Service: 09/13/16 1023 PROCEDURE: CT BRAIN WITHOUT CONTRAST ([id number]) IMPRESSION: No acute intracranial disease process. Dictated by: Fior Garcia MD, PhD on 09/13/2016 at 10:49 Approved by: Fior Garcia MD, PhD on 09/13/2016 at 10:50 Date of Service: 09/13/16 1023 PROCEDURE: X-RAY ABDOMEN DECUBITUS, LEFT IMPRESSION: No free air identified. Nonspecific bowel gas pattern. Patient's symptoms persist or worsen, then repeat imaging or advanced imaging such as CT scan is warranted. Dictated by: Fior Garcia MD, PhD on 09/13/2016 at 11:21 Approved by: Fior Garcia MD, PhD on 09/13/2016 at 11:22 Date of Service: 09/13/16 1131 PROCEDURE: CT ABDOMEN AND PELVIS WITH CONTRAST ([id number]) IMPRESSION: 1. Fecal impaction within the rectum. There is mild associated rectal thickening , consistent with proctitis. There is moderate to severe associated distention of the rectum and distal sigmoid colon. 2. Normal appendix. 3. Bibasilar pneumonia. 4. 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 Dictated by: Jose Antonio Mccarty M.D. on 09/13/2016 at 12:25 Approved by: Jose Antonio Mccarty M.D. on 09/13/2016 at 12:29 Assessment & Plan 86 year old male with history of GI bleeds, chronic Biswsa and recurrent UTI, dementia presenting from [facility] with reported altered mental status, questionable fever prior to admission, and questionable coffee ground emesis in the ED # Acute altered mental status possibly due to acute encephalopathy from underlying infection- and exacerbation of underlying dementia and parkinsonism - further supportive care and treatment as noted below # Questionable acute severe sepsis (reported fever prior to presentation, tachycardia, tachypnea, elevated lactic acid, and altered mental status) with source possible HCAP vs UTI vs Cdiff - monitor BM - not currently symptomatic for cdiff - will hold tx at this time - Abx treatment as noted below with zosyn only for now, hold vanc - cont MRSA screen - c/w IV fluid resuscitation - normalized lactic acid - c/w supportive care - f/u pending cultures, urine cx looks mixed - unremarkable - f/u on Tele for now until can verify goals of care # Possible bilateral lower lobe pneumonia (based on CT abdomen reading by radiology) - patient otherwise without significant leukocytosis, negative procalcitonin and without noted cough on exam at this time. He was however, noted to have mild acute hypoxemia with O2 sat dropping to low 90's in the ED that improved with supplemental O2. - I'm going to only continue with IV Zosyn for now and should patient demonstrate further fever, leukocytosis or clinical deterioration will then consider broadening the Abx treatment - repeat CXR today - consider dedicated chest CT in next day or two to further assess - swallow eval today # Possible acute and recurrent UTI in setting of chronic Biswas cath. - ? if colonization vs real - urine cultures in the past year have grown either E. Coli or Proteus both sensitive to Augmentin - empiric treatment with IV Zosyn as noted above - f/u pending urine culture # Possible acute upper GI bleed with reported coffee ground emesis in the ED - f/u h/h - IV Protonix while unable to tolerate PO - hold home dose ASA # Fecal impaction within the rectum noted on CT abdomen - per ED report rectal exam demonstrated soft stool - stool softeners when able to tolerate PO # Possible acute dehydration - IVF as noted above, gentle 50cc/hr - hold home dose Spironolactone # Alzheimer's Disease - Continue Exelon Patch # Depression - resume home meds when able to tolerate PO # Goals of care. - consider palliative care consult in am - per ED and nursing report who spoke with patient's family members earlier he is DNR/DNI and family does not wish for him to have any invasive procedures or transfusion. will update POA Expected length of hospital stay is greater than 2 midnights and likely 2-3 days Pain Evaluation: Adequate Pain Control GI Prophylaxis: Proton Pump Inhibitor VTE Prophylaxis: SCDs VTE Mechanical Devices: Intermittant Pneumatic CD Resuscitation Status: DNR/DNI:Do Not Resuscitate/Intubate (per ED report) Time spent 45 minutes spent with eval and mgmt Lalo Chavez DO Sep 14, 2016 11:52
--- NOTE | 2016-09-14 12:14 | NUR ---
Palliative Care Palliative Care received verbal order from Dr Chavez 09/14/16 to assist with goals of care. Patient is an 86 year old man with history of dementia, GI bleeds, chronic Biswas and recurrent UTI. He was admitted 09/13/16 due to altered mental status. Patient resides at one of the local [facility] SNFs. Angie (daughter) [phone] Emil Castanon (grandson) [phone] Palliative Care to follow. Licha Miramontes
[2016-09-14] MEDS ORDERED: 0.9% Sodium Chloride 1,000 ML IV SCH (13:40)
--- NOTE | 2016-09-14 14:09 | NUR ---
Evaluation completed. Please go to "Notes" then click on "Assessments and Notes" (bottom left corner of screen). Then select appropriate discipline tab on top of screen.
[2016-09-14] MEDS ORDERED: Tigecycline Inj 100 MG in 0.9% Sodium Chloride 100 ML IV ONE (15:20)
--- NOTE | 2016-09-14 15:58 | DRSVH ---
PROCEDURE: X-RAY CHEST ONE VIEW, PORTABLE ([id number]) INDICATIONS: pna TECHNIQUE: One view of the chest was acquired. COMPARISON: [facility], CR, XR ABD DECUBITUS LT, 09/13/2016, 10:52. [facility], CR, XR CHEST 1VW (PORTABLE), 12/29/2015, 9:39. FINDINGS: Surgical changes and devices: None. Lungs and pleura: Lung volumes are low the interstitium is prominent. Bibasilar airspace opacities. Mediastinum: Mediastinal contours appear normal. Heart size is normal. Bones and chest wall: No suspicious bony lesions. Overlying soft tissues appear unremarkable. IMPRESSION: Interstitial prominence and bibasilar airspace opacities consistent with atelectasis, asp iration or pneumonia. Dictated by: Abdoul Kelley A Interpreted: Fior Garcia MD on 09/14/2016 at 15:57 Transcribed by: DEBRA on 09/14/2016 at 15:58 Approved by: Fior Garcia MD, PhD on 09/14/2016 at 17:08
--- NOTE | 2016-09-14 17:19 | NUR ---
Wound Care Pressure ulcer protocol received patient seen at bedside with nursing present. Patient is an 86 year old male with history of GI bleeds, chronic Biswas and recurrent UTI, dementia and other medical issues as noted below who according to ED report: "was brought to the emergency department by EMS for altered mental status. The patient lives at [facility] and is normally up moving around and talking. He became altered sometime yesterday but the timing is unclear. Skin assessment reveals a blood blister at his left 5th toe dorsally and callousing at right medial heel which once removed with a #10 blade reveals normal skin beneath. Pt's legs are noted to be very ridged likely due to his Parkinsonism. Pt was incontinent of a massive loose stool which aftercleaning him up revealed a few small non-pressure related skin issues, small abrasion at right buttock and some blanchable red lines aross his sacrum. Patient to be placed on a P500 bed once one can be located. No wound follow up needed at his time.
--- NOTE | 2016-09-14 17:20 | CONS ---
[address] [address] CONSULTATION REPORT PATIENT: SANTY CACERES : 1930 MR#: [id number] ADMIT: 09/13/2016 JOB ID: [id number] DATE OF SERVICE: 09/14/2016 INFECTIOUS DISEASE CONSULTATION: I thank Dr. Chavez for this timely consult. REASON FOR CONSULTATION: Possible C. difficile colitis, pulmonary infiltrates, and history of highly resistant bacterial pathogens involving the urinary tract. HISTORY OF PRESENT ILLNESS: The patient is an unfortunate 86-year-old gentleman with multiple medical problems including Parkinson's disease, dementia, chronic lower extremity edema, the need for chronic Biswas catheterization which has led to multiple urinary tract infections including some with highly resistant pathogens, and history of recurrent C. difficile colitis. He currently resides at a retirement facility. He was readmitted to this facility yesterday through the emergency department. He was sent from the retirement facility with report of altered mental status and the dementia and mental status seemed to have worsened. The residential people [facility] say the patient normally can get up and get around and talk and interact somewhat, but over a day or so prior to his admission he had gradually worsened and therefore was sent primarily for that evaluation. It was also stated that he had had some coffee-grounds emesis in the day or so prior to his admission for altered mental status and that was a great concern. In the ER GI was consulted but the family indicated they did not want any transfusions or invasive diagnostic procedures so GI did not formally evaluate the patient given the desires of the family. Initially when he was in the ED he had a chest radiograph which was read as possible infiltrate and this led to institution of multiple broad-spectrum antibiotics for possible nosocomial or healthcare-associated pneumonia. Dr. Molina subsequent saw the patient and narrowed him down to Zosyn alone, thinking it was unlikely the patient had a nosocomial pneumonia. Also noted was the fact the patient had a history of C. difficile and for this and other reasons a stool multiplex PCR study was ordered. I spoke to the nurse who collected that stool and she stated that he actually had formed hard stool, and in fact they had to almost manually disimpact him of this hard stool, and that is what was sent for PCR, which was surprisingly positive for C. diff. Subsequent to that disimpacting of his hard stool, though, the patient has continued to have stool suggesting that maybe there was some diarrhea behind his hardened stool. ID is consulted at this time regarding these multiple issues. I am asked specifically whether he needs treatment for pneumonia, whether he has C. diff disease or is just colonized, and what antibiotics should be utilized given his history of prior ESBL E. coli and C. diff. When I find the patient this afternoon, he is lying supine in his hospital bed with his neck seemingly permanently flexed onto his anterior chest. He is completely unresponsive to my exam and even when speaking his name loudly and shaking him the most I can get is for him to briefly flutter his eyes open. He does not answer any questions, interact, or do anything else. This is apparently a major departure from his normal mental status. PAST MEDICAL HISTORY: 1. Parkinson's disease. 2. Dementia. 3. History of depression. 4. Chronic lower extremity edema with venous stasis changes. 5. History of multiple UTIs as he has a chronic indwelling Biswas and these urinary tract infections have included ESBL E. coli. 6. Peripheral neuropathy of unknown etiology. 7. History of C. difficile colitis one year ago. 8. Avascular necrosis of the left hip with difficult ambulation by history. SOCIAL HISTORY: The patient is an ex smoker and ex drinker who lives at [facility]. No additional details can be obtained from him. FAMILY HISTORY: Unobtainable at this time and seems likely to be noncontributory. REVIEW OF SYSTEMS: Is not possible in this deeply obtunded man. PHYSICAL EXAMINATION: Reveals an obtunded gentleman who I cannot rouse. His current temp 37 degrees, T-max since admission 37.7 and that was yesterday afternoon, pulse 74, respiratory rate 16, blood pressure 112/64, saturating 95% but he is on 4 L by nasal prongs. Examination of the head reveals temporal wasting which is quite noticeable. The patient's neck is surprisingly supple. His eyes are without conjunctivitis or scleral icterus. His nose appears normal. Oral cavity really cannot be examined as he is not awake and will not open his mouth, but I see no herpetic lesions and no lesions in the anterior mouth that I can visualize. He does not have JVD and he does not have cervical adenopathy. Lung sounds are difficult to auscultate, as he is taking very shallow respirations, but I hear no rales or rhonchi. Cardiac tones regular rate and rhythm, quite distant, and without murmur. Abdomen is slightly distended, but seems soft and apparently nontender, though the patient is really not awake. No masses palpated and no hepatosplenomegaly. No ascites is noted. He has a chronic Biswas. No suprapubic tenderness is noted. The lower extremities are somewhat wasted. There is considerable venous stasis discoloration below the knees and extending all way down onto the feet. He has weak peripheral pulses, dorsal pedal bilaterally, and slow capillary refill to the lower extremities. I cannot assess his neuropathy which he is purported to have as he is not awake. He does not spontaneously move any extremities. In his upper extremities there is evidence of cogwheeling rigidity consistent with his history of Parkinson disease. The patient has a peripheral IV in good position. Remainder of the physical exam is unremarkable. LABORATORIES: Include a white count of 6300, hematocrit 37, platelet count 136,000 which is somewhat decreased over his baseline. Creatinine 0.64. Lactic acid was 2.2 in the ER yesterday and is 0.9 now. Ammonia 45. Procalcitonin was 0.29 yesterday in the ER; it is 0.97 today. Urinalysis: 11-50 white cells. Micro studies include negative blood cultures. A stool multiplex PCR positive for C. diff, though recall this was run on formed stool basically. MRSA swab of the nares pending. Respiratory viral PCR panel negative. Urine is growing mixed delaney. In reviewing prior records, the patient had an ESBL E. coli back in December which is reason in and of itself to keep him in isolation. Also notable is that one year ago roughly he had positive C. diff. He has also had Staph aureus bacteremia back in 2009 and 2010. IMAGING: Studies are multiple from this admission and include a chest x-ray from the ER yesterday which shows a left basilar opacity which could be atelectasis or pneumonia. He also has had a brain CT with no intracranial process. An abdominal x-ray has been done which was read as basically nonspecific bowel pattern. An abdominal CT was done which showed fecal impaction in the rectum with some proctitis. There was also moderate to severe distention of the rectum and distal sigmoid. Bibasilar infiltrates were noted and it was also noted that he has severe right hip osteoarthritis. IMPRESSION: This is a difficult and somewhat confusing case of an 86-year-old gentleman with multiple medical problems including Parkinson's disease, dementia, a chronic Biswas catheter, and a history of multiple UTIs, as well as an episode at least one time in the past of C. diff. He was admitted to this facility for what was said to be an altered mental status from the retirement facility yesterday. In association with that it was reported that he had vomited some blood. There was nothing to suggest C. diff and really little to suggest pneumonia. Chest x-rays here show bibasilar infiltrates which led to the institution of very broad-spectrum antibiotics directed at pneumonia. Additionally, urinalysis and urine culture were done to evaluate and see whether he had yet another urinary tract infection, and the patient also was evaluated for C. diff given that he had a history a year ago of the same diagnosis. Stool was obtained, but oddly we sent a stool multiplex PCR on formed hard stool that was obtained early this morning which was positive for C. diff. Note that he had clinical C. diff one year ago with a positive PCR so it is very unclear whether this represents continued colonization with a toxigenic strain or whether actually has active C. diff. At this point I have numerous concerns including the possibility of a healthcare-associated pneumonia, recurrent C. diff with a dilated bowel, or perhaps a complicated urinary tract infection. Many of these concerns are at odds with each other as obviously if we are going to treat with Zosyn or other broad-spectrum antibiotics such as levofloxacin we may make C. diff worse. Likewise treatment of possible multi-drug resistant urinary tract infection will not be simple either. One parsimonious way to do this would be to treat the patient with tigecycline for possible ESBL type organisms as well as pneumonia. This has the advantage of not worsening C. diff and may even serve as a partial treatment. In addition to the tigecycline, I would put the patient on fidaxomicin as a drug for C. diff as this is known to be associated with a lower recurrence rate and less disruption to the bowel delaney. RECOMMENDATIONS: 1. Will discontinue the Zosyn. 2. Will replace it with tigecycline. 3. Fidaxomicin will be started for the C. diff. 4. Will check a repeat procalcitonin tomorrow morning. 5. I agree with the notes in the chart regarding the need to address code status issues in this very debilitated residential patient.
--- NOTE | 2016-09-14 18:25 | NUR ---
Mentation, Activity, C-Diff Several wakeful hours this shift. Feeding self during speech therapy evaluation and talking in complete sentences, otherwise difficult to arouse. Q2T in bed. Limbs stiff, regulation supervisor strong. Stool obtained and sent, resulted C-Diff +. 1st stool formed, 2nd stool VERY large and applesauce consistency. Family provided education. Enteric precautions in place at this time.
[2016-09-14] MEDS ORDERED: Heparin 5,000 Unit/mL Inj SUBQ SCH (20:30)
[2016-09-14] MEDS: Tigecycline Inj 50 MG in 0.9% Sodium Chloride 100 ML IV SCH (23:29)
[2016-09-15] VITALS (7 sets, daily range): BP systolic 92–124; BP diastolic 48–67; PULSE 60–74; RESP 16–22; O2SAT 93–96
--- NOTE | 2016-09-15 05:10 | NUR ---
mentation Pt remained sleeping for the 1st half of shift, refused to open eyes. Did sternal rub, pt complained and opened eyes. Took meds with applesauce well, had nice conversation. Remained awake for 1 hr then back to sleep. Pt on Q2 turns, will continue to monitor.
[2016-09-15 06:34] LABS: BASOPHILS % (AUTO) 0.2 % (0-3); EOSINOPHILS % (AUTO) 1.9 % (0-5); MONOCYTES % (AUTO) 7.8 % (4-12); Mean Corpuscular Hemoglobin 28.3 pg (27.0-35.0); Mean Corpuscular Volume 87.6 fL (81-100); NEUTROPHILS % (AUTO) 70.9 % (40-74); Platelet Count 124 bil/L (150-400)
[2016-09-15] MEDS: 0.9% Sodium Chloride 1,000 ML IV SCH ×2 (06:34→17:44)
--- NOTE | 2016-09-15 09:21 | PCM.PNMED ---
Subjective Date of Service Sep 15, 2016 Subjective - Pt seen and examined this morning. He is AAO x 1. Not in acute distress. - No acute events over night. Exam Vital Signs Vital Sign - Last Date Time Temp Pulse Resp B/P Pulse Ox O2 Delivery O2 Flow Rate FiO2 09/15/16 05:39 63 09/15/16 05:19 37.2 16 99/63 95 Nasal Cannula 4.00 Intake and Output 09/14/16 09/14/16 09/15/16 Cumulative From/Thru 15:00 23:00 07:00 09/13/16 10:50 - 09/15/16 06:40 Intake Total 1318 ml 1059 ml 1053 ml 4760 ml Output Total 400 ml 450 ml 1800 ml Balance 1318 ml 659 ml 603 ml 2960 ml Intake Oral 120 ml 0 ml 120 ml IV Total 1318 ml 939 ml 1053 ml 4640 ml Output Urine Total 400 ml 450 ml 1800 ml # Bowel Movements 3 2 5 Exam General: No Acute Distress, confused Head: Normal Eyes: Scleral Anicteric Nose: Dry membranes Mouth: Mucous Membranes Dry Chest & Lungs: Chest Wall Normal, scattered coarse BS in lower lobes Cardiovascular: Regular Rate/Rhythm Abdomen: Non-tender, Non-distended, Normoactive bowel tones, Soft Extremities: No cyanosis/clubbing/edma bilat Skin: small area of superficial ulceration on the right buttock, skin change in legs bilaterally consistent with chronic venous insufficiency) Lymphatic: Other Lymph Nodes (no significant lymphadenopathy noted) Biswas catheter in place Lab and Diagnostics Result Diagram: 09/15/16 0610 09/15/16 0610 X-Rays, CTs and MRIs Date of Service: 09/13/16 1023 PROCEDURE: X-RAY CHEST ONE VIEW ([id number]) IMPRESSION: Left basilar patchy airspace opacity which could represent atelectasis, aspiration or pneumonia Dictated by: Fior Garcia MD, PhD on 09/13/2016 at 11:22 Approved by: Fior Garcia MD, PhD on 09/13/2016 at 11:23 Date of Service: 09/13/16 1023 PROCEDURE: CT BRAIN WITHOUT CONTRAST ([id number]) IMPRESSION: No acute intracranial disease process. Dictated by: Fior Garcia MD, PhD on 09/13/2016 at 10:49 Approved by: Fior Garcia MD, PhD on 09/13/2016 at 10:50 Date of Service: 09/13/16 1023 PROCEDURE: X-RAY ABDOMEN DECUBITUS, LEFT IMPRESSION: No free air identified. Nonspecific bowel gas pattern. Patient's symptoms persist or worsen, then repeat imaging or advanced imaging such as CT scan is warranted. Dictated by: Fior Garcia MD, PhD on 09/13/2016 at 11:21 Approved by: Fior Garcia MD, PhD on 09/13/2016 at 11:22 Date of Service: 09/13/16 1131 PROCEDURE: CT ABDOMEN AND PELVIS WITH CONTRAST ([id number]) IMPRESSION: 1. Fecal impaction within the rectum. There is mild associated rectal thickening , consistent with proctitis. There is moderate to severe associated distention of the rectum and distal sigmoid colon. 2. Normal appendix. 3. Bibasilar pneumonia. 4. 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 Dictated by: Jose Antonio Mccarty M.D. on 09/13/2016 at 12:25 Approved by: Jose Antonio Mccarty M.D. on 09/13/2016 at 12:29 Assessment & Plan 86 year old male with history of GI bleeds, chronic Biswas and recurrent UTI, dementia presenting from [facility] with reported altered mental status, questionable fever prior to admission, and questionable coffee ground emesis in the ED # Acute altered mental status possibly due to acute encephalopathy from underlying infection- and exacerbation of underlying dementia and parkinsonism - further supportive care and treatment as noted below # Acute severe sepsis (reported fever prior to presentation, tachycardia, tachypnea, elevated lactic acid, and altered mental status) with source possible HCAP vs UTI vs Cdiff - monitor BM - not currently symptomatic for cdiff - will hold tx at this time - Appreciate ID consult - Started on Tigecycline and Fidoxamicin # Possible acute and recurrent UTI in setting of chronic Biswas cath. - urine cultures in the past year have grown either E. Coli or Proteus both sensitive to Augmentin - Appreciate ID consult. Zosyn changed to Tigecycline. -urine culture: mixed urogenital delaney # Possible acute upper GI bleed with reported coffee ground emesis in the ED - f/u h/h - IV Protonix while unable to tolerate PO - hold home dose ASA # Fecal impaction within the rectum noted on CT abdomen - per ED report rectal exam demonstrated soft stool - stool softeners when able to tolerate PO # Possible acute dehydration - hold home dose Spironolactone - gentle hydration # Alzheimer's Disease - Continue Exelon Patch # Depression - resume home meds when able to tolerate PO # Goals of care. - consider palliative care consult - per ED and nursing report who spoke with patient's family members earlier he is DNR/DNI and family does not wish for him to have any invasive procedures or transfusion. will update POA Pain Evaluation: Adequate Pain Control GI Prophylaxis: Proton Pump Inhibitor VTE Prophylaxis: SCDs VTE Mechanical Devices: Intermittant Pneumatic CD Resuscitation Status: DNR/DNI:Do Not Resuscitate/Intubate (per ED report) Chris Diggs MD Sep 15, 2016 09:21 Chris Diggs MD Sep 15, 2016 09:21
[2016-09-15] MEDS: Tigecycline Inj 50 MG in 0.9% Sodium Chloride 100 ML IV SCH ×2 (10:22→19:52)
--- NOTE | 2016-09-15 10:26 | PROG NOTE ---
[address] [address] PROGRESS NOTE PATIENT: SANTY CACERSE : 1930 MR#: [id number] ADMIT: 09/13/2016 JOB ID: [id number] DATE: 09/15/2016 INFECTIOUS DISEASE FOLLOWUP NOTE: REASON FOR FOLLOWUP: C. difficile colitis and pulmonary infiltrate. INTERVAL HISTORY: Recall that yesterday when I saw this patient in consult he was essentially impossible to rouse and carried with him diagnoses of dementia, Parkinson disease and profound debility. He had had a stool which was positive by PCR for C. diff of uncertain significance, as with this test was performed on a hard and formed stool which is something we usually avoid doing in the lab. That made the C. diff diagnosis suspect, as he did have a proven episode of C. diff about a year ago, and the question was whether he was colonized or infected. There were also concerns that the patient might have pneumonia yesterday, and we addressed these concerns by starting the patient on fidaxomicin for possible C. diff and by starting tigecycline for possible aspiration type pneumonia which also may have some efficacy in C. diff. Overnight, the patient was intermittently impossible to arouse and intermittently arousable according to the nursing notes. This morning when I encounter the patient, he is awake, alert, interactive and almost funny. He is, however, only oriented x1. He has no idea where he is nor what year we are living in, or the [place]. President at this time. He does, however, make jokes and was chatting amicably with me about his time in the [employer], as well as the other features of his life. He tells me absolutely he has no fevers, no chills, no sweats, no cough, no shortness of breath, or sore throat. He says he has no belly pain but he has been having diarrhea, and he cannot tell me exactly how much. PHYSICAL EXAMINATION: Reveals a very pleasant, though debilitated elderly gentleman in no acute distress. He is afebrile. Temp 37.2, pulse 63, respiratory rate 16, blood pressure 99/63, saturating pretty well on 4 L. His eyes are without conjunctivitis. His oral cavity without thrush or pharyngitis. Lungs with a few crackles in both bases but not bad. Cardiac tones: Regular rate and rhythm with a soft systolic murmur as before. The abdomen is very soft, nontender, without organomegaly or any notable abnormality. Also notable is he is oriented x1 but still can carry on a delightful conversation. No skin rash noted. LABORATORIES: Include white blood count 5700, platelet count 124,000. Creatinine 0.59. Procalcitonin 0.44. Urinalysis, 11-50 white blood cells. Stool positive for C. diff. Blood cultures all negative. Respiratory viral PCR panel negative. MRSA screen is still pending, and there has been some ambiguity about the results in the lab, for which we await clarification. IMPRESSION: This patient has had a dramatic turnaround in his mental status since yesterday. Notes in the chart from the nurses suggest his mental status swings wildly from almost unarousable to quite interactive. This morning I find him to be very conversational and engaging, though only oriented x1, consistent with his history of dementia. Whether or not he has Clostridium difficile remains very unclear. The patient's white blood count is normal. He looks totally nontoxic but he has been having some frequent bowel movements after the initial hard stool, which was positive for Clostridium difficile. Whether he is colonized with Clostridium difficile or has invasive disease is really impossible to tell at this point. Likewise, his possible diagnosis of healthcare-associated pneumonia is a tough one. His procalcitonin is slightly up but he does not look to be in any respiratory distress. He certainly has had no fevers or other signs of ongoing pneumonia. RECOMMENDATIONS: 1. I would continue with tigecycline through the weekend for a short course. 2. Will continue with fidaxomicin for C. diff with the hope to go for about a 10-day course on the fidaxomicin. 3. I will continue to closely follow this patient and perhaps early next week we will be able to transfer him back to the [place] [facility] facility to complete a course of either fidaxomicin, or if that cannot be afforded, to complete a course of C. diff therapy with vancomycin. 4. I think the course of tigecycline can be very brief, perhaps 5-7 days total. Thank you very much for engaging me in this case.
--- NOTE | 2016-09-15 10:41 | NUR ---
NUTRITION ASSESSMENT: ASSESS: Pt is an 86yo M admitted for pneumonia, hypoxia and possible GI bleed. Pt has been placed on a pureed diet with NT liquids per ST. Per RN he was able to tolerate 50%. He is C. Diff +. ID is following. PMHX: Parkinson's disease, dementia, chronic lower extremity edema LABS: Reviewed. Cl 109, Bun 32, Child Development Specialist .59, Ca 8.1, Alb 3.2 MEDS: Reviewed. GI: C. Diff +, BM x2 09/15 SKIN: No PU per WC. Dyllan 13 CURRENT WTS: 89.4kg, BMI 31.8kg/m2, IBW 64.5kg DIET: Pureed w/ NT liquids. PO 50%x1 meal EST. NEEDS: BMI Kcals: 1965-2235kcal/day (22-25kcal/kg) Pro: 90-105g/day (1-1.2g/kg) NUTRITION DIAGNOSIS: 1.) Chew/swallow difficulty related to generalized weakness and dementia as evidence by need for pureed diet w/NT liquids per ST NUTRITION INTERVENTION: 1.) Continue diet per ST. 2.) Will add magic cup on L&D trays and continue to monitor PO tolerance MONITOR / EVAL: PO, ST, GI, wt, POC, nutrition status. Will continue to monitor per moderate nutrition risk guidelines
--- NOTE | 2016-09-15 13:20 | PCM.CONPAL ---
Date of Service Sep 15, 2016 Date of Hospital Admission: Sep 13, 2016 at 13:17 Date of Palliative Consult: Sep 15, 2016 Requesting Provider: Lalo Chavez Palliative Care Consult: Goals of Care Discussion Hospital Unit @time of consult: Medical/Pediatric Care Palliative Care Recommendation 86-year-old gentleman with multiple chronic medical problems, admitted with possible sepsis and eventual diagnosis of possible pneumonia as well as C. difficile colitis. Palliative medicine consulted to assist in determination of goals of care. Summary of palliative recommendations: -Symptom management (Pain/other)- patient appears quite comfortable at this time. Continued management per hospitalist team Note is made of the possible fecal impaction at time of admission. Consider scheduled BID senna and MiraLAX, with titration to 1-2 regular bowel movements daily. -DPOA/Advanced Directives/POLST- patient has a copy of POLST dated 08/24 which outlines current CODE STATUS is DO NOT RESUSCITATE/DO NOT INTUBATE/limited interventions. I was unable to contact family members today to review this with them, and so for the time being it remains in place with no changes. Daughter Angie and son DENA are both listed as POA- will continue to attempt to contact them to review POLST and inquire whether they wish any changes (note that today when I attempted to contact Angie she was actually in the midst of a medical emergency herself so could not respond). Additional Medical Diagnoses with primary management by Hospitalist team include : # Acute altered mental status possibly due to acute encephalopathy from underlying infection- and exacerbation of underlying dementia and parkinsonism # Acute severe sepsis (reported fever prior to presentation, tachycardia, tachypnea, elevated lactic acid, and altered mental status) with source possible HCAP vs UTI vs Cdiff # Possible acute and recurrent UTI in setting of chronic Biswas cath. # Possible acute upper GI bleed with reported coffee ground emesis in the ED # Fecal impaction within the rectum noted on CT abdomen # Possible acute dehydration # Alzheimer's Disease # Depression Problems: End of Life Preferences DO NOT RESUSCITATE/DO NOT INTUBATE/limited interventions (copy of back of POLST not sent from [facility]) Goals of Care Return to SNF Disposition As above Resuscitation Status Resuscitation Status: DNR/DNI:Do Not Resuscitate/Intubate (per POLST from SNF) POLST Updates/Changes Previous POLST?: Yes POLST Last Review Date: Sep 15, 2016 POLST Discussed with: Patient POLST Review Outcome: No Change . Advanced Care Planning Address: POL Pain: None Symptom management: Constipation Pt History History of Present Illness Per admission H&P: Patient is an 86 year old male with history of GI bleeds, chronic Biswas and recurrent UTI, dementia and other medical issues as noted below who according to ED report: "was brought to the emergency department by EMS for altered mental status. The patient lives at [facility] and is normally up moving around and talking. He became altered sometime yesterday but the timing is unclear. Medics reports BP of 122/83, HR 120, O2 sat of 88 on 2 L improved to 93 on nonrebreather. The patient is unable to provide any history at this time. The patient is DNR." Palliative medicine consulted to assist patient and family and determination of goals of care, given his advanced dementia and multiple medical comorbidities. Prior to visiting, I reviewed his updated records in the EMR in detail, both for this and prior visits. I also reviewed his case with Dr. Kirkland of infectious disease. When I arrived, he is sitting up in bed, watching television, in no distress. He greets me pleasantly and we chatted. He is extremely forgetful and can provide little if any past history. He does not know where he is, where he normally lives, what he used to do for work, and other than transiently recognizing family member names that are on his white board, he cannot remember who people are or how they are connected to him. He did deny any pain, trouble breathing, nausea or other concerns. He says he feels pretty normal. Past Medical History Significant PMH Noted: 1. 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 2. Bilateral foot neuropathy, specifics unknown. 3. Depression. 4. Dementia 5. Known carotid stenosis. 6. Reported B12 deficiency. 7. Chronic edema with stasis changes. 8. History of left lower extremity cellulitis. 9. Varicose veins. 10. Gait instability . 11. Parkinsonism 12. Urinary incontinence with secondary skin breakdown (long-term catheter placement as a result.) Surgical History back surgery L5-S1 discectomy, laminectomy left hip avascular necrosis leading to left hip replacement Social History Occupation: Retired Family Members Issues: I tried to contact his daughter Angie (who is one of his POA's)- when I called her phone number a male answered who said that paramedics were at the home at that moment checking Angie who had become ill, at least partly due to the stress of her father's hospitalization. For this reason, no further information was available at this time. Living Situation: [facility] at Time of Admission Previous POLST?: Yes POLST Last Review Date: Sep 15, 2016 Cardiopulmonary Resuscitation: DNR: Do Not Attempt Resuscitation Medical Interventions: Limited Additional Interventions POLST Status: No change from last encounter Allergy Allergies Reviewed: Yes Medications Current Medications: Current Medications Al Hydrox/Mg Hydrox/Simethicone 30 ml Q6H PRN PO; Start 09/13/16 at 17:15 Ondansetron HCl 4 to 8 mg Q4H PRN IVPUSH; Start 09/13/16 at 17:15 Senna 17.2 mg BID PRN PO; Start 09/13/16 at 17:15 Polyethylene Glycol 17 gm DAILY PRN PO; Start 09/13/16 at 17:15 Acetaminophen 650 mg Q4H PRN PO Last administered on 09/14/16 13:40; Admin Dose 650 MG; Start 09/13/16 at 17:15 Morphine Sulfate 1-2 mg Q4H PRN IV Last administered on 09/13/16 22:30; Admin Dose 2 MG; Start 09/13/16 at 17:15 Sodium Chloride 1,000 ml @ 100 mls/hr Q10H IV Last administered on 09/15/16 06 :34; Admin Dose 100 MLS/HR; Start 09/13/16 at 17:15 Rivastigmine 1 patch DAILY TOPICAL Last administered on 09/15/16 10:19; Admin Dose 1 PATCH; Start 09/14/16 at 08:30 Non-Formulary Medication 1 applic 1 applic DAILY PRN TOPICAL; Start 09/13/16 at 18:15; Status UNV Piperacillin Sod/ Tazobactam Sod/ Dextrose/Water 50 ml @ 12.5 mls/hr Q8H IV Last administered on 09/14/16 13:47; Admin Dose 12.5 MLS/HR; Start 09/13/16 at 21 :00; Stop 09/14/16 at 15:32; Status DC Heparin Sodium (Porcine) 5000 unit 5,000 unit Q12 SUBQ; Start 09/14/16 at 20:30; Stop 09/14/16 at 20:30; Status DC Sodium Chloride 1,000 ml @ 75 mls/hr [id number] IV Last administered on 09/14/16 15:13; Admin Dose 75 MLS/HR; Start 09/14/16 at 13:40; Stop 09/14/16 at 15:40; Status DC Tigecycline/ Sodium Chloride 105 ml @ 210 mls/hr Q12 IV Last administered on 10:22; Admin Dose 210 MLS/HR; Start 09/14/16 at 23:30 Fidaxomicin 200 mg BID PO Last administered on 09/15/16 10:17; Admin Dose 200 MG; Start 09/14/16 at 15:20 Scheduled Aspirin (Aspirin) 81 Mg Tablet 81 MG PO QAM Cholecalciferol (Vitamin D3) (Vitamin D) 1,000 Unit Tablet 3,000 UNIT PO QAM Cyanocobalamin (Vitamin B12) 1,000 Mcg Tablet 1,000 MCG PO QAM Diclofenac Gel (Voltaren Gel) 100 Gm Tube 1 APPLIC TOPICAL TID apply to rt.knee for comfort Rivastigmine Patch (Exelon Patch) 4.6 Mg Patch 4.6 MG TRANSDERM DAILY Spironolactone (Spironolactone) 25 Mg Tablet 25 MG PO QAM Sulindac (Sulindac) 200 Mg Tablet 100 MG PO BID Scheduled PRN Acetaminophen (Acetaminophen) 325 Mg Capsule 325-650 MG PO Q4-6H PRN PRN PRN Bisacodyl (Dulcolax) 5 Mg Tablet.dr 5 MG PO DAILY PRN PRN For Constipation Bisacodyl (Dulcolax Rectal) 10 Mg Supp.rect 10 MG RC DAILY PRN PRN For Constipation Emollient Combination No.40 (Cetaphil) 226 Gm Lotion 1 APPLIC TOPICAL DAILY PRN PRN dry skin Magnesium Hydroxide (Milk of Magnesia) 400 Mg/5 Ml Oral.susp 30 ML PO DAILY PRN PRN PRN Objective Findings Exam Vital Sign - Last Date Time Temp Pulse Resp B/P Pulse Ox O2 Delivery O2 Flow Rate FiO2 09/15/16 10:00 Supplement Oxygen 09/15/16 09:18 37.0 74 18 92/48 93 3.00 Intake and Output 3/03/2509/14/16 09/15/16 Cumulative From/Thru 15:00 23:00 07:00 09/13/16 10:50 - 09/15/16 06:40 Intake Total 1318 ml 1059 ml 1053 ml 4760 ml Output Total 400 ml 450 ml 1800 ml Balance 1318 ml 659 ml 603 ml 2960 ml Intake Oral 120 ml 0 ml 120 ml IV Total 1318 ml 939 ml 1053 ml 4640 ml Output Urine Total 400 ml 450 ml 1800 ml # Bowel Movements 3 2 5 Objective Tall elderly male lying in bed. Pleasant and alert. Vital signs noted. HEENT exam remarkable for multiple actinic keratoses. Lungs clear, heart sounds regular, abdomen rounded, soft, without tenderness. No peritoneal signs. Lower extremities with prominent chronic venous stasis changes. No pitting edema. Lab/Diagnostics Lab and Imaging results reviewed in detail in EMR. Time spent Total time 65 minutes; >50% face to face with patient and family, providing counselling regarding plans and recommendations, and in care coordination with his medical teams. Lalo Page MD Sep 15, 2016 13:20
--- NOTE | 2016-09-15 15:58 | NUR ---
Social Work: Initial Assessment Data & Assessment: See Initial Assessment. EMR Reviewed. Patient is a 86 year old male that admitted on 09/13/16 due to Pneumonia, Hypoxia, Sepsis and possible GI Bleed per H& P. Extrusion Engineer met with patient at bedside to complete initial assessment, but he was unable to answer the questions. SW spoke with patient's [employer]KEmil [phone], to complete initial assessment, Social Work role explained and discharge planning discussed. Advanced directives were discussed and SW requested a copy of patient's DPOA. Patient's grandson stated that Angie is patient's DPOA. SW requested a copy of Advanced Directives. Patient' PCP is Dr. Becki Miller. Patient's insurance is [employer]. Patient does not have any LTC or VA benefits. Patient does not have a re-admit score. Patient uses a WC at baseline. Patient has no HH history, but is currently a resident and [facility] and the family plans for the patient to return there. SW gave [facility] access to the patient's chart. SW will continue to follow. Plan: Pt to likely discharge back to [facility].Pt's family is supportive. SW will continue to follow. Jackie Chaparro LMSW, JACQUE Addendum: 09/15/16 at 1620 by JACKIE CHAPARRO Amended: Links added.
--- NOTE | 2016-09-15 18:46 | NUR ---
Mentation: Patient continues to be pleasantly confused. He becomes restless at times. His Bed alarm is on for safety and nursing staff provides frequent rounding. Patient continues to be on contact enteric precautions for C diff infection.
--- NOTE | 2016-09-16 00:17 | NUR ---
Mentation Pt more conversational to day, more alert to others. Wanted to go home, bed alarm on, eventually agreed to remain in room for the night. Left room with call light at bedside.
[2016-09-16] MEDS: 0.9% Sodium Chloride 1,000 ML IV SCH ×2 (05:15→21:14)
[2016-09-16 05:29] VITALS: BP 127/67; PULSE 59; RESP 20; O2SAT 93
--- NOTE | 2016-09-16 10:47 | PCM.PNMED ---
Subjective Date of Service Sep 16, 2016 Subjective - Pt seen and examined this morning. He is AAO x 1. No acute events over night. - Denies any new complaints. Exam Vital Signs Vital Sign - Last Date Time Temp Pulse Resp B/P Pulse Ox O2 Delivery O2 Flow Rate FiO2 09/16/16 05:29 36.9 59 20 127/67 93 Room Air 09/15/16 13:13 3.00 Intake and Output 09/15/16 09/15/16 09/16/16 Cumulative From/Thru 14:59 22:59 06:59 09/13/16 10:50 - 09/16/16 06:48 Intake Total 1683 ml 1563 ml 8006 ml Output Total 620 ml 975 ml 3395 ml Balance 1063 ml 588 ml 4611 ml Intake Oral 720 ml 400 ml 1240 ml IV Total 963 ml 1163 ml 6766 ml Output Urine Total 620 ml 975 ml 3395 ml # Bowel Movements 4 2 11 Exam General: No Acute Distress, confused Head: Normal Eyes: Scleral Anicteric Nose: Dry membranes Mouth: Mucous Membranes Dry Chest & Lungs: Chest Wall Normal, scattered coarse BS in lower lobes Cardiovascular: Regular Rate/Rhythm Abdomen: Non-tender, Non-distended, Normoactive bowel tones, Soft Extremities: No cyanosis/clubbing/edma bilat Skin: small area of superficial ulceration on the right buttock, skin change in legs bilaterally consistent with chronic venous insufficiency) Lymphatic: Other Lymph Nodes (no significant lymphadenopathy noted) Biswas catheter in place Lab and Diagnostics Result Diagram: 09/15/16 0610 09/15/16 0610 X-Rays, CTs and MRIs Date of Service: 09/13/16 1023 PROCEDURE: X-RAY CHEST ONE VIEW ([id number]) IMPRESSION: Left basilar patchy airspace opacity which could represent atelectasis, aspiration or pneumonia Dictated by: Fior Garcia MD, PhD on 09/13/2016 at 11:22 Approved by: Fior Garcia MD, PhD on 09/13/2016 at 11:23 Date of Service: 09/13/16 1023 PROCEDURE: CT BRAIN WITHOUT CONTRAST ([id number]) IMPRESSION: No acute intracranial disease process. Dictated by: Fior Garcia MD, PhD on 09/13/2016 at 10:49 Approved by: Fior Garcia MD, PhD on 09/13/2016 at 10:50 Date of Service: 09/13/16 1023 PROCEDURE: X-RAY ABDOMEN DECUBITUS, LEFT IMPRESSION: No free air identified. Nonspecific bowel gas pattern. Patient's symptoms persist or worsen, then repeat imaging or advanced imaging such as CT scan is warranted. Dictated by: Fior Garcia MD, PhD on 09/13/2016 at 11:21 Approved by: Fior Garcia MD, PhD on 09/13/2016 at 11:22 Date of Service: 09/13/16 1131 PROCEDURE: CT ABDOMEN AND PELVIS WITH CONTRAST ([id number]) IMPRESSION: 1. Fecal impaction within the rectum. There is mild associated rectal thickening , consistent with proctitis. There is moderate to severe associated distention of the rectum and distal sigmoid colon. 2. Normal appendix. 3. Bibasilar pneumonia. 4. 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 Dictated by: Jose Antonio Mccarty M.D. on 09/13/2016 at 12:25 Approved by: Jose Antonio Mccarty M.D. on 09/13/2016 at 12:29 Assessment & Plan 86 year old male with history of GI bleeds, chronic Biswas and recurrent UTI, dementia presenting from [facility] with reported altered mental status, questionable fever prior to admission, and questionable coffee ground emesis in the ED # Acute altered mental status possibly due to acute encephalopathy from underlying infection- and exacerbation of underlying dementia and parkinsonism - further supportive care and treatment as noted below # Acute severe sepsis (reported fever prior to presentation, tachycardia, tachypnea, elevated lactic acid, and altered mental status) with source possible HCAP vs UTI vs C diff - monitor BM - not currently symptomatic for cdiff - will hold tx at this time - Appreciate ID consult - Started on Tigecycline and Fidoxamicin. He needs total 10 days course of fidoxamicin. # Possible acute and recurrent UTI in setting of chronic Biswas cath. - urine cultures in the past year have grown either E. Coli or Proteus both sensitive to Augmentin - Appreciate ID consult. Zosyn changed to Tigecycline. -urine culture: mixed urogenital delaney # Possible acute upper GI bleed with reported coffee ground emesis in the ED - f/u h/h - IV Protonix while unable to tolerate PO - hold home dose ASA # Fecal impaction within the rectum noted on CT abdomen - per ED report rectal exam demonstrated soft stool - stool softeners when able to tolerate PO # Possible acute dehydration - hold home dose Spironolactone - gentle hydration # Alzheimer's Disease - Continue Exelon Patch # Depression - resume home meds when able to tolerate PO # Goals of care. - consider palliative care consult - per ED and nursing report who spoke with patient's family members earlier he is DNR/DNI and family does not wish for him to have any invasive procedures or transfusion. will update POA Pain Evaluation: Adequate Pain Control GI Prophylaxis: Proton Pump Inhibitor VTE Prophylaxis: SCDs VTE Mechanical Devices: Intermittant Pneumatic CD Resuscitation Status: DNR/DNI:Do Not Resuscitate/Intubate (per POL from SNF) Chris Diggs MD Sep 16, 2016 10:47
[2016-09-16] MEDS: Tigecycline Inj 50 MG in 0.9% Sodium Chloride 100 ML IV SCH ×2 (10:50→21:14)
[2016-09-16 13:39] VITALS: BP 127/64; PULSE 64; RESP 19; O2SAT 92
[2016-09-16 15:09] LABS: BASOPHILS % (AUTO) 0.2 % (0-3); EOSINOPHILS % (AUTO) 2.9 % (0-5); MONOCYTES % (AUTO) 7.2 % (4-12); Mean Corpuscular Hemoglobin 28.1 pg (27.0-35.0); Mean Corpuscular Volume 83.7 fL (81-100); NEUTROPHILS % (AUTO) 62.5 % (40-74); Platelet Count 127 bil/L (150-400)
--- NOTE | 2016-09-16 18:45 | NUR ---
Appetite/stool: Patient has a good appetite: He is eating at least 50-80% of his meals.He eats better with 1;1 feed which was provided each meal . Patient has had 2 large loose stools today and he continues to be on contact enteric precautions for C Diff.
[2016-09-16 21:17] VITALS: BP 138/74; PULSE 74; RESP 20; O2SAT 92
[2016-09-17] MEDS: 0.9% Sodium Chloride 1,000 ML IV SCH ×3 (01:15→21:15)
[2016-09-17 05:44] VITALS: BP 126/68; PULSE 70; RESP 18; O2SAT 93
--- NOTE | 2016-09-17 07:02 | NUR ---
Diarrhea Pt has been having multiple loose dark stools. Currently positive for c-diff. IV tigecycline administered as ordered. No s/sx of chest pain, sob, n/v or abd discomfort. Biswas draining and patent. VSS, and pt has been afebrile overnight.
[2016-09-17] MEDS ORDERED: KCl 40 mEq/D5W 500 mL 40 MEQ in IV Premix 1 EACH IV ONE (07:45)
[2016-09-17] MEDS: Tigecycline Inj 50 MG in 0.9% Sodium Chloride 100 ML IV SCH ×2 (09:54→21:28)
--- NOTE | 2016-09-17 10:24 | PCM.PNMED ---
Subjective Date of Service Sep 17, 2016 Subjective - Pt seen and examined this morning. He is AAO x 1. No acute events over night. - Still has loose stools. - Denies chest pain, shortness of breath. Exam Vital Signs Vital Sign - Last Date Time Temp Pulse Resp B/P Pulse Ox O2 Delivery O2 Flow Rate FiO2 09/17/16 05:44 36.7 70 18 126/68 93 Room Air 09/15/16 13:13 3.00 Intake and Output 09/16/16 09/16/16 09/17/16 Cumulative From/Thru 15:00 23:00 07:00 09/13/16 10:50 - 09/17/16 05:44 Intake Total 605 ml 250 ml 8861 ml Output Total 2000 ml 2400 ml 7795 ml Balance -1395 ml -2150 ml 1066 ml Intake Oral 500 ml 250 ml 1990 ml IV Total 105 ml 6871 ml Output Urine Total 2000 ml 2400 ml 7795 ml # Bowel Movements 2 4 17 Exam General: No Acute Distress, confused Head: Normal Eyes: Scleral Anicteric Nose: Dry membranes Mouth: Mucous Membranes Dry Chest & Lungs: Chest Wall Normal, scattered coarse BS in lower lobes Cardiovascular: Regular Rate/Rhythm Abdomen: Non-tender, Non-distended, Normoactive bowel tones, Soft Extremities: No cyanosis/clubbing/edma bilat Skin: small area of superficial ulceration on the right buttock, skin change in legs bilaterally consistent with chronic venous insufficiency) Lymphatic: Other Lymph Nodes (no significant lymphadenopathy noted) Biswas catheter in place IVs and Medications Medications Reviewed: Medications were reviewed in detail Lab and Diagnostics Result Diagram: 09/16/16 1454 09/17/16 0636 X-Rays, CTs and MRIs Date of Service: 09/13/16 1023 PROCEDURE: X-RAY CHEST ONE VIEW ([id number]) IMPRESSION: Left basilar patchy airspace opacity which could represent atelectasis, aspiration or pneumonia Dictated by: Fior Garcia MD, PhD on 09/13/2016 at 11:22 Approved by: Fior Garcia MD, PhD on 09/13/2016 at 11:23 Date of Service: 09/13/16 1023 PROCEDURE: CT BRAIN WITHOUT CONTRAST ([id number]) IMPRESSION: No acute intracranial disease process. Dictated by: Fior Garcia MD, PhD on 09/13/2016 at 10:49 Approved by: Fior Garcia MD, PhD on 09/13/2016 at 10:50 Date of Service: 09/13/16 1023 PROCEDURE: X-RAY ABDOMEN DECUBITUS, LEFT IMPRESSION: No free air identified. Nonspecific bowel gas pattern. Patient's symptoms persist or worsen, then repeat imaging or advanced imaging such as CT scan is warranted. Dictated by: Fior Garcia MD, PhD on 09/13/2016 at 11:21 Approved by: Fior Garcia MD, PhD on 09/13/2016 at 11:22 Date of Service: 09/13/16 1131 PROCEDURE: CT ABDOMEN AND PELVIS WITH CONTRAST ([id number]) IMPRESSION: 1. Fecal impaction within the rectum. There is mild associated rectal thickening , consistent with proctitis. There is moderate to severe associated distention of the rectum and distal sigmoid colon. 2. Normal appendix. 3. Bibasilar pneumonia. 4. 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 Dictated by: Jose Antonio Mccarty M.D. on 09/13/2016 at 12:25 Approved by: Jose Antonio Mccarty M.D. on 09/13/2016 at 12:29 Assessment & Plan 86 year old male with history of GI bleeds, chronic Biswas and recurrent UTI, dementia presenting from [facility] with reported altered mental status, questionable fever prior to admission, and questionable coffee ground emesis in the ED # Acute altered mental status possibly due to acute encephalopathy from underlying infection- and exacerbation of underlying dementia and parkinsonism - further supportive care and treatment as noted below # Acute severe sepsis (reported fever prior to presentation, tachycardia, tachypnea, elevated lactic acid, and altered mental status) with source possible HCAP vs UTI vs C diff - monitor BM - not currently symptomatic for cdiff - will hold tx at this time - Appreciate ID consult - Started on Tigecycline and Fidoxamicin 09/14 - present. He needs total 10 days course of fidoxamicin. # Possible acute and recurrent UTI in setting of chronic Biswas cath. - urine cultures in the past year have grown either E. Coli or Proteus both sensitive to Augmentin - Appreciate ID consult. Zosyn changed to Tigecycline. -urine culture: mixed urogenital delaney # Possible acute upper GI bleed with reported coffee ground emesis in the ED - Hct stable. Will continue to monitor - IV Protonix while unable to tolerate PO - hold home dose ASA # Fecal impaction within the rectum noted on CT abdomen - per ED report rectal exam demonstrated soft stool # Possible acute dehydration - hold home dose Spironolactone - gentle hydration # Alzheimer's Disease - Continue Exelon Patch # Depression - resume home meds when able to tolerate PO # Goals of care. - consider palliative care consult - per ED and nursing report who spoke with patient's family members earlier he is DNR/DNI and family does not wish for him to have any invasive procedures or transfusion. will update POA GI Prophylaxis: Proton Pump Inhibitor VTE Prophylaxis: SCDs VTE Mechanical Devices: Intermittant Pneumatic CD Resuscitation Status: DNR/DNI:Do Not Resuscitate/Intubate (per JESSICA from SNF) Chris Diggs MD Sep 17, 2016 10:23
[2016-09-17 11:52] LABS: BASOPHILS % (AUTO) 0.4 % (0-3); EOSINOPHILS % (AUTO) 3.1 % (0-5); MONOCYTES % (AUTO) 8.7 % (4-12); Mean Corpuscular Volume 83.5 fL (81-100); NEUTROPHILS % (AUTO) 58.7 % (40-74); Platelet Count 138 bil/L (150-400)
[2016-09-17 14:11] VITALS: BP 163/52; PULSE 71; RESP 16; O2SAT 92
--- NOTE | 2016-09-17 15:55 | NUR ---
STEFANIE Attempted to call next NOK because patient is not decisional. There was no answer. SW left a message requesting a call back.
--- NOTE | 2016-09-17 18:48 | NUR ---
Loose stools: Patient was incontinent of 2 large loose stools today. He continues to be on enteric and contact precautions.
[2016-09-17 21:14] VITALS: BP 145/81; PULSE 102; RESP 22; O2SAT 92
[2016-09-17 22:20] VITALS: PULSE 72
[2016-09-17 23:20] LABS: Magnesium 1.8 mg/dL (1.6-2.6)
[2016-09-18] VITALS (8 sets, daily range): BP systolic 105–148; BP diastolic 59–75; PULSE 64–88; RESP 18–22; O2SAT 91–93
--- NOTE | 2016-09-18 05:45 | NUR ---
Loose stools/Heart Rate Patient had multiple loose stools over night. denies pain/discomfort. Afebrile. HR elevated 110. Apical HR 105 normally patient 60-70's. notified new order to place patient on tele and to recheck BMP and magnesium. labs WNL. patient HR 60-70's while sleeping. Will continue to monitor.
[2016-09-18 07:09] LABS: BASOPHILS % (AUTO) 0.2 % (0-3); EOSINOPHILS % (AUTO) 3.2 % (0-5); MONOCYTES % (AUTO) 9.8 % (4-12); Mean Corpuscular Hemoglobin 28.1 pg (27.0-35.0); Mean Corpuscular Volume 82.4 fL (81-100); NEUTROPHILS % (AUTO) 56.9 % (40-74); Platelet Count 149 bil/L (150-400)
[2016-09-18] MEDS: 0.9% Sodium Chloride 1,000 ML IV SCH ×2 (07:15→17:15)
[2016-09-18] MEDS ORDERED: Potassium Chloride 20 mEq SR Tablet PO ONE (07:45)
--- NOTE | 2016-09-18 08:30 | PCM.PNMED ---
Subjective Date of Service Sep 18, 2016 Subjective No complaints of chest pain, dyspnea, nausea, vomiting no documentation of any further diarrhea. Patient is poorly verbal Exam Vital Signs Vital Sign - Last Date Time Temp Pulse Resp B/P Pulse Ox O2 Delivery O2 Flow Rate FiO2 09/18/16 06:29 37.1 68 22 105/59 93 Room Air 09/15/16 13:13 3.00 Intake and Output 09/17/16 09/17/16 09/18/16 Cumulative From/Thru 15:00 23:00 07:00 09/13/16 10:50 - 09/18/16 06:28 Intake Total 490 ml 0 ml 9351 ml Output Total 925 ml 750 ml 9470 ml Balance -435 ml -750 ml -119 ml Intake Oral 490 ml 0 ml 2480 ml IV Total 6871 ml Output Urine Total 925 ml 750 ml 9470 ml # Bowel Movements 1 10 28 Exam General: No Acute Distress, resting with his eyes closed responds to questions somewhat +/-able to make needs known Head: Normocephalic atraumatic Eyes: Does not open eyes, eyelids normal no drainage Mouth: Mucous Membranes Dry Chest & Lungs: Chest Wall Normal, CTA Cardiovascular: Regular Rate/Rhythm, no murmur or gallop auscultated Abdomen: Non-tender, Non-distended, Normoactive bowel tones, Soft Extremities: No cyanosis/clubbing/edma bilat Skin: small area of superficial ulceration on the right buttock (reported), skin change in legs bilaterally consistent with chronic venous insufficiency Lymphatic: Other Lymph Nodes (no significant lymphadenopathy noted) Biswas catheter in place Neuro: Nonfocal cranial nerves II through XII intact to gross examination Psych: Patient is pleasant/responsive minimally Lab and Diagnostics Result Diagram: 09/18/16 0701 09/18/16 0701 X-Rays, CTs and MRIs Date of Service: 09/13/16 1023 PROCEDURE: X-RAY CHEST ONE VIEW ([id number]) IMPRESSION: Left basilar patchy airspace opacity which could represent atelectasis, aspiration or pneumonia Dictated by: Fior Garcia MD, PhD on 09/13/2016 at 11:22 Approved by: Fior Garcia MD, PhD on 09/13/2016 at 11:23 Date of Service: 09/13/16 1023 PROCEDURE: CT BRAIN WITHOUT CONTRAST ([id number]) IMPRESSION: No acute intracranial disease process. Dictated by: Fior Garcia MD, PhD on 09/13/2016 at 10:49 Approved by: Fior Garcia MD, PhD on 09/13/2016 at 10:50 Date of Service: 09/13/16 1023 PROCEDURE: X-RAY ABDOMEN DECUBITUS, LEFT IMPRESSION: No free air identified. Nonspecific bowel gas pattern. Patient's symptoms persist or worsen, then repeat imaging or advanced imaging such as CT scan is warranted. Dictated by: Fior Garcia MD, PhD on 09/13/2016 at 11:21 Approved by: Fior Garcia MD, PhD on 09/13/2016 at 11:22 Date of Service: 09/13/16 1131 PROCEDURE: CT ABDOMEN AND PELVIS WITH CONTRAST ([id number]) IMPRESSION: 1. Fecal impaction within the rectum. There is mild associated rectal thickening , consistent with proctitis. There is moderate to severe associated distention of the rectum and distal sigmoid colon. 2. Normal appendix. 3. Bibasilar pneumonia. 4. 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 Dictated by: Jose Antonio Mccarty M.D. on 09/13/2016 at 12:25 Approved by: Jose Antonio Mccarty M.D. on 09/13/2016 at 12:29 Assessment & Plan 86 year old male with history of GI bleeds, chronic Biswas and recurrent UTI, dementia presenting from [facility] with reported altered mental status, questionable fever prior to admission, and questionable coffee ground emesis in the ED 09/18/16 patient medically stable unclear source of sepsis antibiotics per infectious disease, medically stable, hemoglobin stable little evidence of GI bleed no changes to current management. Weaning aggressive antibiotic regimen per infectious disease and probably patient will be stable for discharge back to [facility] 09/20 # Acute altered mental status possibly due to acute encephalopathy from underlying infection- and exacerbation of underlying dementia and parkinsonism - further supportive care and treatment as noted below -Reportedly waxing and waning # Acute severe sepsis (reported fever prior to presentation, tachycardia, tachypnea, elevated lactic acid, and altered mental status) with source possible HCAP vs UTI vs C diff - monitor BM - not currently symptomatic for cdiff - will hold tx at this time - Appreciate ID consult - Started on Tigecycline and Fidoxamicin 09/14 - present. He needs total 10 days course of fidoxamicin. # Possible acute and recurrent UTI in setting of chronic Biswas cath. - urine cultures in the past year have grown either E. Coli or Proteus both sensitive to Augmentin - Appreciate ID consult. Zosyn changed to Tigecycline. -urine culture: mixed urogenital delaney # Possible acute upper GI bleed with reported coffee ground emesis in the ED - Hct stable. Will continue to monitor, Hg 12.63/13 stable - IV Protonix while unable to tolerate PO - hold home dose ASA # Fecal impaction within the rectum noted on CT abdomen - per ED report rectal exam demonstrated soft stool # Possible acute dehydration - hold home dose Spironolactone - gentle hydration # Alzheimer's Disease - Continue Exelon Patch # Depression - resume home meds when able to tolerate PO # Goals of care. - palliative care consulted - per ED and nursing report who spoke with patient's family members earlier he is DNR/DNI and family does not wish for him to have any invasive procedures or transfusion. will update POA GI Prophylaxis: Proton Pump Inhibitor VTE Prophylaxis: SCDs VTE Mechanical Devices: Intermittant Pneumatic CD Resuscitation Status: DNR/DNI:Do Not Resuscitate/Intubate (per POLST from [facility]) Faizan Haney MD Sep 18, 2016 08:30
--- NOTE | 2016-09-18 08:53 | PROG NOTE ---
[address] [address] PROGRESS NOTE PATIENT: SANTY CACERES : 1930 MR#: [id number] ADMIT: 09/13/2016 JOB ID: [id number] DATE: 09/18/2016 REASON FOR FOLLOW UP: C. difficile infection, possible pneumonia, and bacteriuria. INTERVAL HISTORY: Recall that this is the elderly, somewhat demented gentleman, who was seen in consultation late last week after admission from a alf facility. He had a hard stool which was tested by PCR for C. diff and found to be positive, which was of unclear significance. There were also concerns about possible healthcare-associated pneumonia as well as possible urinary tract infection. A wide variety of cultures and studies were obtained and the patient was started on tigecycline as treatment for potentially all three of the possible identified infections as well as for fidaxomicin which was specifically targeted of his recurrent C. diff. Over the weekend, the patient's mental status continued to wax and wane. This morning, the patient is awake and oriented x1 as before. He denies specific complaints and specifically denies fevers, chills, shortness of breath or abdominal pain. He denies diarrhea, but it is unclear how reliable this history really is. PHYSICAL EXAMINATION: Reveals an afebrile gentleman. Temp 37.1, blood pressure 105/59. He is saturating well on room air. He does not appear to be in any distress. In fact, denies pain and distress. His oral cavity dry. Lungs with poor respiratory excursion but basically clear. Cardiac tones without new murmur. Abdomen is slightly distended but entirely soft and nontender. He has no skin rash and no significant peripheral edema. LABORATORIES: Include a white count stable at 5600, platelet count improved to 149,000, differential white blood count normal. Creatinine 0.46. Procalcitonin 0.44 on Sunday, not repeated. Urinalysis had 11-50 white cells initially, and the urine grew mixed delaney. Blood cultures have been negative. The stool PCR as mentioned was positive for C. diff, and a MRSA swab from the nose positive. His last chest x-ray was on the that shows bibasilar infiltrates consistent with atelectasis or pneumonia. IMPRESSION: This is a bit of a complex case of a demented gentleman who was admitted with possible worsening of his overall situation. The differential considerations include a pneumonia based on his bilateral subtle infiltrates, urinary tract infection based on his modest pyuria, and Clostridium diff based on the positive PCR which was obtained, albeit from hard stool. Since admission, the patient has had fairly frequent bowel movements which would suggest that the diagnosis of Clostridium difficile colitis may be correct. As to whether he has any pneumonia or urinary tract infection, I think that is much more doubtful. Tigecycline is a convenient drug here as it covers basically all these of bases. The literature about tigecycline and Clostridium diff is, at best, speculative, but it certainly does not make it worse and there is some evidence that makes it better. He will be a reasonable agent for long-term pneumonia or urinary tract infection. RECOMMENDATIONS: 1. I would continue tigecycline through the , and then stop. 2. I would continue fidaxomicin for a total of 10 days, which would take us through the , and then stop. 3. I think the patient might reasonably be ready for transfer back to the long-term on or about the when his tigecycline finishes, and he could simply finish fidaxomicin at the long-term. 4. If fidaxomicin is not available at the long-term, he could be transitioned instead to vancomycin 125 q.i.d., to finish out as indicated. This case was discussed in person with the hospitalist MARY
--- NOTE | 2016-09-18 09:00 | NUR ---
STEFANIE signed with haris Stein via Phone. VALERIA Hook
--- NOTE | 2016-09-18 09:23 | NUR ---
Social Work-readiness for discharge: Data:EMR reviewed. Pt is on day 5 of hospitalization for pneumonia per H&P. Pt is not medically stable for discharge today, anticipate another 1-2 days. [place] spoke with haris Stein who is in agreement with the plan of return to [facility] at discharge. [place] spoke with Delia in admissions at [facility] who confirms they are able to accept pt back at discharge. 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 Paperwork has been placed in the chart. SW will continue to follow. Assessment:Pt who would resides at [facility]. Plan:Pt to discharge back to [facility] when medically stable. Paperwork has been placed in the chart. SW will continue to follow. VALERIA Hook
--- NOTE | 2016-09-18 09:27 | NUR ---
[facility] can accept back with Dr. Becki Miller to follow. Pt has been paying privately -terminal operator care. Radha Cai MSW
--- NOTE | 2016-09-18 10:03 | NUR ---
STEFANIE: Patient has dementia at base and is unable to accept STEFANIE, asked [employer] to follow up with family/NOK for STEFANIE.
[2016-09-18] MEDS: Tigecycline Inj 50 MG in 0.9% Sodium Chloride 100 ML IV SCH ×2 (10:12→21:50)
--- NOTE | 2016-09-18 11:19 | PCM.PNPALL ---
Date of Service Sep 18, 2016 Date of Hospital Admission: Sep 13, 2016 at 13:17 Date of Palliative Consult: Sep 15, 2016 Palliative Care Recommendation 86-year-old gentleman with multiple chronic medical problems, admitted with possible sepsis and eventual diagnosis of possible pneumonia as well as C. difficile colitis. Palliative medicine consulted to assist in determination of goals of care. Summary of palliative recommendations: -Symptom management (Pain/other)- patient appears quite comfortable at this time. He denies pain today. Continued management per hospitalist team Note is made of the possible fecal impaction at time of admission. Consider scheduled BID senna and MiraLAX, with titration to 1-2 regular bowel movements daily. -DPOA/Advanced Directives/POLST- patient has a copy of POLST dated 08/24 which outlines current CODE STATUS is DO NOT RESUSCITATE/DO NOT INTUBATE/limited interventions. I was unable to contact family members today to review this with them, and so for the time being it remains in place with no changes. Daughter Angie and son DENA are both listed as POA- will continue to attempt to contact them to review POLST and inquire whether they wish any changes (note that today when I attempted to contact Angie there was no answer at both of the listed phone numbers.) My question for her today is whether remaining in the SNF with the next crisis might be more in line with his goals of care than these somewhat regular readmissions. The patient himself is happy with the treatment and level of care effected by his current goals of care. Additional Medical Diagnoses with primary management by Hospitalist team include : # Acute altered mental status possibly due to acute encephalopathy from underlying infection- and exacerbation of underlying dementia and parkinsonism # Acute severe sepsis (reported fever prior to presentation, tachycardia, tachypnea, elevated lactic acid, and altered mental status) with source possible HCAP vs UTI vs Cdiff # Possible acute and recurrent UTI in setting of chronic Biswas cath. # Possible acute upper GI bleed with reported coffee ground emesis in the ED # Fecal impaction within the rectum noted on CT abdomen # Possible acute dehydration # Alzheimer's Disease # Depression Problems: End of Life Preferences DO NOT RESUSCITATE/DO NOT INTUBATE/limited interventions (copy of back of POLST not sent from SNF) Goals of Care Return to SNF Disposition As above Resuscitation Status Resuscitation Status: DNR/DNI:Do Not Resuscitate/Intubate (per POLST from SNF) POLST Updates/Changes Previous POLST?: Yes POLST Last Review Date: Sep 15, 2016 POLST Discussed with: Patient POLST Review Outcome: No Change . Advanced Care Planning Address: Comfort care Pain: None Symptom management: Drowsiness/sleepiness Palliative Subjective Brief History 86-year-old gentleman with multiple chronic medical problems, admitted with possible sepsis and eventual diagnosis of possible pneumonia as well as C. difficile colitis. Palliative medicine consulted to assist in determination of goals of care. Subjective Lying in bed with his eyes closed, looking peaceful and content. Carries on extended conversation with his eyes closed, following my questions and responding appropriately. Finally appears confused when I ask him about Trump and Obama, and responds with, "their names are familiar, who are they?" Denies pain. Breathing comfortably. No observed edema. Appears weak and deconditioned. Palliative Performance Scale PPS Patient Status: Current PPS Ambulation: Mainly Bed PPS Activity: Unable to do most activity PPS Self-Care: 2 person assist PPS Intake: Normal or reduced PPS Conscious Level: Full or confusion Performace Scale: 30% ADLs ADL Patient Status: Baseline ADL Ambulation: Mainly Bed ADL Dressing: Full ADL Feeding: Full ADL Hygene/bathing: Full ADL Transfers: Full Objective Findings Exam Vital Sign - Last Date Time Temp Pulse Resp B/P Pulse Ox O2 Delivery O2 Flow Rate FiO2 09/18/16 06:29 37.1 68 22 105/59 93 Room Air 09/15/16 13:13 3.00 Intake and Output 09/17/16 09/17/16 09/18/16 Cumulative From/Thru 15:00 23:00 07:00 09/13/16 10:50 - 09/18/16 06:28 Intake Total 490 ml 0 ml 9351 ml Output Total 925 ml 750 ml 9470 ml Balance -435 ml -750 ml -119 ml Intake Oral 490 ml 0 ml 2480 ml IV Total 6871 ml Output Urine Total 925 ml 750 ml 9470 ml # Bowel Movements 1 4 22 General: Oriented, Person, Place, No acute distress HEENT: Atraumatic Neuro: Follows Commands Extremities: No Edema Lab/Diagnostics Lab and Imaging results reviewed in detail in EMR. Patient/Family Conference Discussion/Goals of Care Discussion FAMILY UNDERSTANDING OF DISEASE: DISEASE PROGRESSION/EVIDENCE OF DECLINE: SYMPTOM BURDEN: GOALS: HOPES/WORRIES: FAMILY WISHES/VALUES: Do you want to be told truth about his illness, even if unpleasant? Does family want to know prognosis when it can be predicted, to better guide treatment decisions? What is quality of life for the patient: to be able to interact with their loved ones and friends, to travel, not to be bedbound, to be independent in taking care of themselves: Would patient choose quality of life over quantity of life? Would comfort care be more important than being awake and alert? If patient is no longer alert and aware because of their illness, would you choose comfort for them? Palliative Care counselled: Time spent Total time [30] minutes; >50% face to face with patient and/or family, providing counselling regarding plans and recommendations, and in care coordination with his/her medical teams. Olu Dempsey MD Sep 18, 2016 09:38
--- NOTE | 2016-09-18 18:27 | NUR ---
Stools Pt had one large, loose BM this shift. Pt remains on contact/enteric precautions. Pt turned Q2 hours and PRN, tolerating well. He denies any pain/discomfort at this time.
[2016-09-19 01:42] VITALS: BP 124/61; PULSE 69; RESP 18; O2SAT 95
[2016-09-19] MEDS: 0.9% Sodium Chloride 1,000 ML IV SCH ×2 (03:15→12:31)
[2016-09-19 04:52] VITALS: BP 123/59; PULSE 64; RESP 18; O2SAT 92
--- NOTE | 2016-09-19 05:30 | NUR ---
Loose stools Pt still having loose diarrhea x3 on shift. No obvious s/sx of chest pain, sob, n/v. HS meds/ABx administered as scheduled. Hourly rounding done, Q2 turns provided. VSS and pt has been afebrile overnight. Will continue to monitor.
[2016-09-19 09:08] LABS: Magnesium 1.9 mg/dL (1.6-2.6)
[2016-09-19] MEDS: Tigecycline Inj 50 MG in 0.9% Sodium Chloride 100 ML IV SCH ×2 (10:08→20:49)
--- NOTE | 2016-09-19 10:37 | PCM.PNPALL ---
Date of Service Sep 19, 2016 Date of Hospital Admission: Sep 13, 2016 at 13:17 Date of Palliative Consult: Sep 15, 2016 Palliative Care Recommendation 86-year-old gentleman with multiple chronic medical problems, admitted with possible sepsis and eventual diagnosis of possible pneumonia as well as C. difficile colitis. Palliative medicine consulted to assist in determination of goals of care. Summary of palliative recommendations: -Symptom management (Pain/other)- patient appears quite comfortable at this time. He denies pain today. Continued management per hospitalist team Note is made of the possible fecal impaction at time of admission. Consider scheduled BID senna and MiraLAX, with titration to 1-2 regular bowel movements daily. -DPOA/Advanced Directives/POLST- patient has a copy of POLST dated 08/24 which outlines current CODE STATUS is DO NOT RESUSCITATE/DO NOT INTUBATE/limited interventions. I was unable to contact family members today to review this with them, and so for the time being it remains in place with no changes. Daughter Angie and grandson DENA are both listed as POA. I spoke with Angie today , who confirmed DNR status with ongoing goals of hospital level care when acutely ill at his SNF in the future. "He wants to improve himself", shes says , in reference to the question of ongoing acute hospital care when indicated. The patient himself is happy with the treatment and level of care effected by his current goals of care. Parkinsonism. Will hold Exelon as a trial. Consider trial of Ritalin/ Adderall for daytime energy/animation effect. Continue Fluoxetine. Both Dr. Miller and his nurse at [facility] deny any history of Parkinsons. The last neurology consult of record was [address] Bowling, when he had a pattern of unexplained falls. He was not showing signs of Parkinsons at that time. The hospital chart lists Parkinsonism 12/22, which then is listed as Parkinsons Disease on the recent H and P. He's not on any of the usual Parkinsonism inducing medicines. There is no tremor or mask facies/rigidity. The current symptom is of profound Bradykinesia. This is also discussed with Dr. Haney, his managing hospitalist. Exelon has a listed 2% relationship to drug induced Parkinsonism and a 1-3% relationship of exacerbating Parkinsons. His baseline at the facility is roaming the hallway in his wheelchair alternating with lying in bed all day. He does keep his eyes open usually. There is no current hypotension/bradycardia/sedating medication use to explain the observed bradykinesia. Additional Medical Diagnoses with primary management by Hospitalist team include : # Acute altered mental status possibly due to acute encephalopathy from underlying infection- and exacerbation of underlying dementia and parkinsonism # Acute severe sepsis (reported fever prior to presentation, tachycardia, tachypnea, elevated lactic acid, and altered mental status) with source possible HCAP vs UTI vs Cdiff # Possible acute and recurrent UTI in setting of chronic Biswas cath. # Possible acute upper GI bleed with reported coffee ground emesis in the ED # Fecal impaction within the rectum noted on CT abdomen # Possible acute dehydration # Alzheimer's Disease # Depression Problems: End of Life Preferences DO NOT RESUSCITATE/DO NOT INTUBATE/limited interventions (copy of back of POLST not sent from SNF) Goals of Care Return to SNF Disposition As above Resuscitation Status Resuscitation Status: DNR/DNI:Do Not Resuscitate/Intubate (per POLST from SNF) POLST Updates/Changes Previous POLST?: Yes POLST Last Review Date: Sep 15, 2016 POLST Discussed with: Patient POLST Review Outcome: No Change . Pain: None Symptom management: Drowsiness/sleepiness Palliative Subjective Brief History 86-year-old gentleman with multiple chronic medical problems, admitted with possible sepsis and eventual diagnosis of possible pneumonia as well as C. difficile colitis. Palliative medicine consulted to assist in determination of goals of care. Subjective Denies pain and has no concerns or questions that he can identify. Seems content and unreflective. Terse but pleasant answers to questions. Does not expand on leading questions, even those from early life, about topics that dementia patients typically keep intact. Palliative Performance Scale PPS Patient Status: Current PPS Ambulation: Mainly Bed PPS Activity: Unable to do most activity PPS Self-Care: 2 person assist PPS Intake: Normal or reduced PPS Conscious Level: Full or confusion Performace Scale: 30% ADLs ADL Patient Status: Baseline ADL Ambulation: Mainly Bed ADL Dressing: Full ADL Feeding: Full ADL Hygene/bathing: Full ADL Transfers: Full Objective Findings Exam Vital Sign - Last Date Time Temp Pulse Resp B/P Pulse Ox O2 Delivery O2 Flow Rate FiO2 09/19/16 04:52 36.6 64 18 123/59 92 Room Air 09/15/16 13:13 3.00 Intake and Output 09/18/16 09/18/16 09/19/16 Cumulative From/Thru 15:00 23:00 07:00 09/13/16 10:50 - 09/19/16 06:38 Intake Total 740 ml 536 ml 24497 ml Output Total 600 ml 600 ml 47616 ml Balance 140 ml -64 ml -43 ml Intake Oral 250 ml 0 ml 2730 ml IV Total 490 ml 536 ml 7897 ml Output Urine Total 600 ml 600 ml 70444 ml # Bowel Movements 1 2 25 General: Oriented, Person, Place, No acute distress HEENT: Atraumatic Neuro: Arousable, Follows Commands, Spontaneous Eye Opening (Does not open his eyes until I ask him to and then it's only for a few seconds. ), Speech, Weakness, Other (Expressionless and low animation. Answers are terse but appropriate and without typical depressive features. ) Extremities: No Edema Addtional Information No noted rigidity/tremor. Very bradykinetic. Lab/Diagnostics Lab and Imaging results reviewed in detail in EMR. Patient/Family Conference Discussion/Goals of Care Discussion See comments above about d/w his daughter on 09/19/16. Time spent Total time [60] minutes; >50% face to face with patient and/or family, providing counselling regarding plans and recommendations, and in care coordination with his/her medical teams. Olu Dempsey MD Sep 19, 2016 09:40
--- NOTE | 2016-09-19 13:14 | PCM.PNMED ---
Subjective Date of Service Sep 19, 2016 Subjective Patient extremely somnolent which apparently is not his baseline. He does not have any complaints of chest pain, dyspnea, nausea and vomiting, is barely verbal at all. At the time when I am seeing him he is nonverbal and not arousing to gentle stimulation Exam Vital Signs Vital Sign - Last Date Time Temp Pulse Resp B/P Pulse Ox O2 Delivery O2 Flow Rate FiO2 09/19/16 04:52 36.6 64 18 123/59 92 Room Air 09/15/16 13:13 3.00 Intake and Output 09/18/16 09/18/16 09/19/16 Cumulative From/Thru 15:00 23:00 07:00 09/13/16 10:50 - 09/19/16 06:38 Intake Total 740 ml 536 ml 01126 ml Output Total 600 ml 600 ml 52057 ml Balance 140 ml -64 ml -43 ml Intake Oral 250 ml 0 ml 2730 ml IV Total 490 ml 536 ml 7897 ml Output Urine Total 600 ml 600 ml 54789 ml # Bowel Movements 1 2 25 Exam General: No Acute Distress, resting with his eyes closed not arousable to gentle stimuli prodding/speech Head: Normocephalic atraumatic Eyes: Does not open eyes, eyelids normal no drainage Mouth: Mucous Membranes Dry Chest & Lungs: Chest Wall Normal, CTA Cardiovascular: Regular Rate/Rhythm, no murmur or gallop auscultated Abdomen: Non-tender, Non-distended, Normoactive bowel tones, Soft Extremities: No cyanosis/clubbing/edma bilat Skin: small area of superficial ulceration on the right buttock (reported), skin change in legs bilaterally consistent with chronic venous insufficiency Lymphatic: Other Lymph Nodes (no significant lymphadenopathy noted) Biswas catheter in place chronic long-term Neuro: Nonfocal cranial nerves II through XII intact to gross examination Psych: Sleeping Lab and Diagnostics Result Diagram: 09/18/16 0701 09/18/16 0701 X-Rays, CTs and MRIs Date of Service: 09/13/16 1023 PROCEDURE: X-RAY CHEST ONE VIEW ([id number]) IMPRESSION: Left basilar patchy airspace opacity which could represent atelectasis, aspiration or pneumonia Dictated by: Fior Garcia MD, PhD on 09/13/2016 at 11:22 Approved by: Fior Garcia MD, PhD on 09/13/2016 at 11:23 Date of Service: 09/13/16 1023 PROCEDURE: CT BRAIN WITHOUT CONTRAST ([id number]) IMPRESSION: No acute intracranial disease process. Dictated by: Fior Garcia MD, PhD on 09/13/2016 at 10:49 Approved by: Fior Garcia MD, PhD on 09/13/2016 at 10:50 Date of Service: 09/13/16 1023 PROCEDURE: X-RAY ABDOMEN DECUBITUS, LEFT IMPRESSION: No free air identified. Nonspecific bowel gas pattern. Patient's symptoms persist or worsen, then repeat imaging or advanced imaging such as CT scan is warranted. Dictated by: Fior Garcia MD, PhD on 09/13/2016 at 11:21 Approved by: Fior Garcia MD, PhD on 09/13/2016 at 11:22 Date of Service: 09/13/16 1131 PROCEDURE: CT ABDOMEN AND PELVIS WITH CONTRAST ([id number]) IMPRESSION: 1. Fecal impaction within the rectum. There is mild associated rectal thickening , consistent with proctitis. There is moderate to severe associated distention of the rectum and distal sigmoid colon. 2. Normal appendix. 3. Bibasilar pneumonia. 4. 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 Dictated by: Jose Antonio Mccarty M.D. on 09/13/2016 at 12:25 Approved by: Jose Antonio Mccarty M.D. on 09/13/2016 at 12:29 Assessment & Plan 86 year old male with history of GI bleeds, chronic Biswas and recurrent UTI, dementia [facility] with reported altered mental status, questionable fever prior to admission, and questionable coffee ground emesis in the ED 09/18/16 patient medically stable unclear source of sepsis antibiotics per infectious disease, medically stable, hemoglobin stable little evidence of GI bleed no changes to current management. Weaning aggressive antibiotic regimen per infectious disease and probably patient will be stable for discharge back to [facility] 09/2009/19/16 patient somnolent, medically stable, stopping rivastigmine patch, spoke with JACIE/haris Castanon, advised and patient will likely be discharging back to [facility] finishing oral antibiotics for C. difficile either Fidoxamicin or vancomycin if that will not be covered 09/20. # Acute altered mental status possibly due to acute encephalopathy from underlying infection- and exacerbation of underlying dementia and parkinsonism - further supportive care and treatment as noted below -Reportedly waxing and waning -Spoke to grandson/TAMMI who reports patient is often very awake just confused and tells the same stories over and confuses him for his father. He also reports the patient becomes more somnolent whenever in the hospital and recovers back at SNF -Agree with trial of holding the rivastigmine patch per Dr. Jarrell thank you # Acute severe sepsis (reported fever prior to presentation, tachycardia, tachypnea, elevated lactic acid, and altered mental status) with source possible HCAP vs UTI vs C diff - monitor BM - not currently symptomatic for cdiff - will hold tx at this time - Appreciate ID consult - Started on Tigecycline -09/20 #Cdiff- patient had had a urologic procedure earlier in August and got an antibiotic -Fidoxamicin 09/14 -09/24 for a 10 day course. Or if not feasible with by mouth vancomycin -Currently patient having 5 bowel movements a day but recent fecal impaction present on admission suggest patient will need a bowel regimen once diarrhea/ colitis has resolved # Possible acute and recurrent UTI in setting of chronic Biswas cath. - urine cultures in the past year have grown either E. Coli or Proteus both sensitive to Augmentin - Appreciate ID consult. Zosyn changed to Tigecycline. -urine culture: mixed urogenital delaney # Possible acute upper GI bleed with reported coffee ground emesis in the ED - Hct stable. Will continue to monitor, Hg 12.63/13 stable - IV Protonix while unable to tolerate PO - hold home dose ASA # Fecal impaction within the rectum noted on CT abdomen - per ED report rectal exam demonstrated soft stool # Possible acute dehydration - hold home dose Spironolactone - gentle hydration discontinued 09/19. # Alzheimer's Disease - Exelon Patch due to concerns it may be causing sedation # Depression - resume home meds when able to tolerate PO # Goals of care. - palliative care consulted - per ED and nursing report who spoke with patient's family members earlier he is DNR/DNI and family does not wish for him to have any invasive procedures or transfusion. will update POA -Discharge patient back to SNF 09/20 GI Prophylaxis: Proton Pump Inhibitor VTE Prophylaxis: SCDs VTE Mechanical Devices: Intermittant Pneumatic CD Resuscitation Status: DNR/DNI:Do Not Resuscitate/Intubate (per [facility] from [facility]) Faizan Haney MD Sep 19, 2016 07:20
[2016-09-19 13:44] VITALS: BP 132/63; PULSE 66; RESP 1; RESP 18; O2SAT 96
--- NOTE | 2016-09-19 18:50 | PROG NOTE ---
[address] [address] PROGRESS NOTE PATIENT: SANTY CACERES : 1930 MR#: [id number] ADMIT: 09/13/2016 JOB ID: [id number] DATE: 09/19/2016 REASON FOR FOLLOWUP: C. difficile colitis, as well as subtle pulmonary infiltrates, pyuria, and venous stasis changes of the lower extremity. INTERVAL HISTORY: Overnight, the patient reports that he is feeling fine. The patient has a somewhat detached affect and tells us basically that he has never been better and denies complaints. It is unclear to me whether he is reporting accurately or whether he is responding sarcastically, but given his underlying dementia, it is a bit hard for me to figure out which way the answers are intended. He tells us he has no fevers, chills, or sweats. No cough, no diarrhea, no belly pain and that he is hungry for dinner, which just arrived. PHYSICAL EXAMINATION: Reveals an afebrile gentleman, temperature 36.8, pulse 66, respiratory rate 15-18, blood pressure 132/63, saturating well on room air. Mental status: As noted, he answers questions fluently, though it is not certain how reliable the answers are. Oral cavity without thrush or pharyngitis. his lungs relatively clear anteriorly. Abdomen: Soft and nontender. Legs with venous stasis changes but no evidence of cellulitis. LABORATORIES: Include a white blood count of 5600, platelet count 149,000, creatinine 0.48. Urine Legionella antigen negative. Blood cultures negative. Stool was positive for C. diff of course. No recent x-rays have been done. IMPRESSION: The patient's mental status seems improved today, though again he is demented and it is a little hard to follow exactly what is going on, but he certainly is more awake than he has been. The patient's Clostridium difficile is being treated both with fidaxomicin as well as IV tigecycline. Tigecycline is primarily intended for possible urinary tract infection and possible pneumonia, possible soft tissue infection, but more importantly for the proven Clostridium difficile colitis as an agent which at least will not make the Clostridium difficile worse while we address the other possible infections. RECOMMENDATIONS: 1. Will continue tigecycline through tomorrow morning and stop. 2. I would continue tigecycline through tomorrow morning and then stop. 3. Will continue fidaxomicin for a total of 10 days through the if possible. If [facility] cannot be [facility], we can certainly switch to oral vancomycin. 4. ID will go ahead and sign off at this time. Thank you very much.
[2016-09-19 20:08] VITALS: BP 124/64; PULSE 60; RESP 20; O2SAT 95
[2016-09-20 04:16] VITALS: BP 134/80; PULSE 69; RESP 20; O2SAT 94
--- NOTE | 2016-09-20 05:50 | NUR ---
Noc/Loose stools Pt still having loose diarrhea. Still on contact enteric precaution for C-diff. No obvious s/sx of chest pain, sob, nausea. Q2hr turning provided. VSS, and pt has been afebrile overnight.
--- NOTE | 2016-09-20 07:34 | PCM.DIMED ---
Discharge Instructions Date of Service Sep 20, 2016 Dates of Hospitalization Sep 13, 2016 at 13:17 Discharge Diagnosis Discharge Diagnosis Sepsis unclear etiology Diet Heart Healthy Activity No restrictions Call your provider Fever or Chills, Excessive diarrhea Patient Instructions Follow-up Provider: Becki Miller MD Follow-up with PCP in: 1 week Faizan Haney MD Sep 20, 2016 07:34
--- NOTE | 2016-09-20 07:36 | PCM.DC.MED ---
Discharge Summary Date of Service Sep 20, 2016 Dates of Hospitalization Date of Hospital Admission Sep 13, 2016 at 13:17 Date of Discharge: Sep 20, 2016 Providers: Admitting Physician: Benji Molina Primary Care Physician: Becki Miller MD Attending Physician: Benji Molina Diagnosis at Time of Discharge Diagnosis at Time of Discharge Sepsis unclear etiology Consultations [place] infectious disease Palliative [facility] Procedures XRay, CTs & MRIs Date of Service: 09/13/16 1023 PROCEDURE: X-RAY CHEST ONE VIEW ([id number]) IMPRESSION: Left basilar patchy airspace opacity which could represent atelectasis, aspiration or pneumonia Dictated by: Fior Garcia MD, PhD on 09/13/2016 at 11:22 Approved by: Fior Garcia MD, PhD on 09/13/2016 at 11:23 Date of Service: 09/13/16 1023 PROCEDURE: CT BRAIN WITHOUT CONTRAST ([id number]) IMPRESSION: No acute intracranial disease process. Dictated by: Fior Garcia MD, PhD on 09/13/2016 at 10:49 Approved by: Fior Garcia MD, PhD on 09/13/2016 at 10:50 Date of Service: 09/13/16 1023 PROCEDURE: X-RAY ABDOMEN DECUBITUS, LEFT IMPRESSION: No free air identified. Nonspecific bowel gas pattern. Patient's symptoms persist or worsen, then repeat imaging or advanced imaging such as CT scan is warranted. Dictated by: Fior Garcia MD, PhD on 09/13/2016 at 11:21 Approved by: Fior Garcia MD, PhD on 09/13/2016 at 11:22 Date of Service: 09/13/16 1131 PROCEDURE: CT ABDOMEN AND PELVIS WITH CONTRAST ([id number]) IMPRESSION: 1. Fecal impaction within the rectum. There is mild associated rectal thickening , consistent with proctitis. There is moderate to severe associated distention of the rectum and distal sigmoid colon. 2. Normal appendix. 3. Bibasilar pneumonia. 4. 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 Dictated by: Jose Antonio Mccarty M.D. on 09/13/2016 at 12:25 Approved by: Jose Antonio Mccarty M.D. on 09/13/2016 at 12:29 ECG 12 Lead . Sinus tachycardia rate 117 . Left anterior fascicular block . Consider anterior infarct . Nonspecific repol abnormality, lateral leads . When compared with ECG of 29-Dec-2015 9:24:49, . Change in interpretation without significant change in waveform 09/12/16 Brief History 86 year old male who according to ED report: was brought to the emergency department by EMS for altered mental status. History of GI bleeds, chronic Biswas and recurrent UTI, dementia and other medical issues as noted below . The patient lives at [facility] and is normally up moving around and talking. He became altered sometime yesterday but the timing is unclear. Medics reports BP of 122/83, HR 120, O2 sat of 88 on 2 L improved to 93 on nonrebreather. Hospital Course 86 year old male with history of GI bleeds, chronic Biswas and recurrent UTI, dementia [facility] with reported altered mental status, questionable fever prior to admission, and questionable coffee ground emesis in the ED 09/18/16 patient medically stable unclear source of sepsis antibiotics per infectious disease, medically stable, hemoglobin stable little evidence of GI bleed no changes to current management. Weaning aggressive antibiotic regimen per infectious disease and probably patient will be stable for discharge back to [facility] 09/2009/19/16 patient somnolent, medically stable, stopping rivastigmine patch, spoke with TAMMI/haris Castanon, advised and patient will likely be discharging [facility] to [facility] finishing oral antibiotics for C. difficile either Fidoxamicin or vancomycin if Fidoxamicinnot be covered. # Acute altered mental status possibly due to acute encephalopathy from underlying infection- and exacerbation of underlying dementia and parkinsonism -Reportedly waxing and waning, -Spoke to grandson/DPOAE who reports patient is often very awake just confused and tells the same stories over and confuses him for his father. He also reports the patient becomes more somnolent whenever in the hospital and recovers back at SNF -Agree with trial of holding the rivastigmine patch per Dr. Jarrell thank you as this may cause some sedation, would avoid sedating medications # Acute severe sepsis- reported fever prior to presentation, tachycardia, tachypnea, elevated lactic acid, and altered mental status) with source possible HCAP vs UTI vs C diff resolved by 09/18 when I met this patient we are completing antibiotic course at that time. - monitor BM - not currently symptomatic for cdiff - will hold tx at this time - ID consult appreciated thank you Dr. Kirkland - Tigecycline course completed -09/20 #Cdiff- patient had had a urologic procedure earlier in August and got an antibiotic -Fidoxamicin 09/14 -09/24 for a 10 day course. Or if not feasible with by mouth vancomycin -Currently patient having 5 bowel movements a day but recent fecal impaction present on admission suggest patient will need a bowel regimen once diarrhea/ colitis has resolved # Possible acute and recurrent UTI in setting of chronic Biswas cath. - urine cultures in the past year have grown either E. Coli or Proteus both sensitive to Augmentin - Appreciate ID consult. Zosyn changed to Tigecycline. -urine culture: mixed urogenital delaney # Possible acute upper GI bleed with reported coffee ground emesis in the ED, H& H never dropped no further workup was done - Hct stable. Will continue to monitor, Hg 12.63/13 stable - IV Protonix while unable to tolerate PO, patient transitioned back to TO -Resume ASA # Fecal impaction within the rectum noted on CT abdomen - per ED report rectal exam demonstrated soft stool -A more aggressive bowel regimen may be required for this patient in the future once his diarrhea resolves. # Possible acute dehydration - hold home dose Spironolactone - gentle hydration discontinued 09/19. # Alzheimer's Disease - Exelon Patch discontinued 09/19 due to concerns it may be causing sedation # Goals of care. - palliative care consulted - ED and nursing report who spoke with patient's family members earlier he is DNR/DNI, no invasive procedures or transfusion.I updated POA 09/19 -Discharging patient back to SNF 09/20 Exam Vital Signs (Last) Date Time Temp Pulse Resp B/P Pulse Ox O2 Delivery O2 Flow Rate FiO2 09/20/16 04:16 36.7 69 20 134/80 94 Room Air 09/15/16 13:13 3.00 Exam General: No Acute Distress, resting with his eyes closed responds to questions somewhat +/-able to make needs known Head: Normocephalic atraumatic Eyes: Does not open eyes, eyelids normal no drainage Mouth: Mucous Membranes Dry Chest & Lungs: Chest Wall Normal, CTA Cardiovascular: Regular Rate/Rhythm, no murmur or gallop auscultated Abdomen: Non-tender, Non-distended, Normoactive bowel tones, Soft Extremities: No cyanosis/clubbing/edma bilat Skin: small area of superficial ulceration on the right buttock (reported), skin change in legs bilaterally consistent with chronic venous insufficiency Lymphatic: Other Lymph Nodes (no significant lymphadenopathy noted) Chronic long-standing Biswas catheter in place Neuro: Nonfocal cranial nerves II through XII intact to gross examination Psych: Patient is pleasant/responsive minimally wakes up briefly and goes back to sleep Test 09/13/16 10:20 09/13/16 13:45 09/13/16 15:00 09/14/16 05:40 Total Bilirubin 1.1mg/dL (0.0-1.2) Aspartate Amino Transf (AST/SGOT) 23U/L (0-50) Alanine Aminotransferase (ALT/SGPT) 15U/L (0-44) Alkaline Phosphatase 114U/L (25-160) Troponin T 0.010ug/L (0.0-0.011) Pro-B-Type Natriuretic Peptide 367.3pg/mL (0-486) Total Protein 7.3g/dL (6.4-8.4) Urine Color Yellow (YELLOW) Urine Appearance Slightly cloudy Urine pH 5.5 (5.0-8.0) Urine Specific [place] 1.010 (1.003-1.035) Urine Protein 250mg/dL (NEG,TRACE) Urine Glucose (UA) Negativemg/dL (NEGATIVE) Urine Ketones Negativemg/dL (NEGATIVE) Urine Occult Blood Moderate (NEGATIVE) Urine Nitrite Positive (NEGATIVE) Urine Bilirubin Negative (NEGATIVE) Urine Urobilinogen Normalmg/dL (NORMAL) Urine Leukocyte Esterase Small (NEGATIVE) Urine RBC 0-2/hpf (0-2) Urine WBC 11-50/hpf (0-5) Urine Epithelial Cells Occasional/hpf (NONE-MOD) Urine Crystals None seen (NONE SEEN) Urine Bacteria Many/hpf (NONE-FEW) Urine Hyaline Casts None/lpf (NONE) Urine Granular Casts None seen (NONE SEEN) Urine Waxy Casts None seen (NONE SEEN) Urine Red Blood Cell Casts None seen (NONE SEEN) Urine White Blood Cell Casts None seen (NONE SEEN) Urine Mucus None seen (None Seen) Urine Trichomonas None seen (NONE SEEN) Urine Yeast None (NONE SEEN) Urinalysis Comment None Urine Culture Reflexed Indicated Urine Legionella pneumophilia Ag Negative (Negative) Ammonia 45ug/dL (18-53) Prothrombin Time 12.7sec (8.1-12.5) Prothromb Time International Ratio 1.18ratio Activated Partial Thromboplast Time 32.5sec (22.8-33.0) Lactic Acid Level 0.9mmol/L (0.4-2.0) Albumin 3.2g/dL (3.4-5.0) Test 09/15/16 06:10 09/17/16 06:36 09/18/16 07:01 09/19/16 08:11 Procalcitonin 0.44ng/mL (0.00-0.08) Prealbumin 8mg/dL (20-40) White Blood Count 5.6th/mm3 (3.8-10.1) Red Blood Count 4.49mil/mm3 (4.40-5.80) Hemoglobin 12.6g/dL (13.8-17.2) Hematocrit 37.0% (41.0-50.0) Mean Corpuscular Volume 82.4fL (81-100) Mean Corpuscular Hemoglobin 28.1pg (27.0-35.0) Mean Corpuscular Hemoglobin Concent 34.1% (32.0-37.0) Red Cell Distribution Width 13.9% (12.3-15.4) Platelet Count 149bil/L (150-400) Neutrophils (%) (Auto) 56.9% (40-74) Lymphocytes (%) (Auto) 29.5% (14-46) Monocytes (%) (Auto) 9.8% (4-12) Eosinophils (%) (Auto) 3.2% (0-5) Basophils (%) (Auto) 0.2% (0-3) Sodium Level 143mEq/L (134-144) Potassium Level 3.5mEq/L (3.5-5.2) Chloride Level 108mEq/L (97-108) Carbon Dioxide Level 22mmol/L (18-29) Blood Urea Nitrogen 23mg/dL (8-27) Creatinine 0.48mg/dL (0.76-1.27) Estimat Glomerular Filtration Rate 176mL/min (>59) Glucose Level 99mg/dL (60-99) Calcium Level 8.1mg/dL (8.5-10.1) Magnesium Level 1.9mg/dL (1.6-2.6) Discharge Medications Discharge Medications Aspirin (Aspirin) 81 Mg Tablet 81 MG PO QAM (Reported) Cholecalciferol (Vitamin D3) (Vitamin D) 1,000 Unit Tablet 3,000 UNIT PO QAM ( Reported) Cyanocobalamin (Vitamin B12) 1,000 Mcg Tablet 1,000 MCG PO QAM (Reported) Fidaxomicin (Dificid) 200 Mg Tablet 200 MG PO BID Prescribed by: RAMESH HANEY MD Potassium Chloride (Potassium Chloride) 10 Meq Tab.er.prt 10 MEQ PO TID Prescribed by: RAMESH HANEY MD As needed Acetaminophen (Acetaminophen) 325 Mg Capsule 325-650 MG PO Q4-6H PRN PRN PRN ( Reported) Bisacodyl (Dulcolax) 5 Mg Tablet.dr 5 MG PO DAILY PRN PRN For Constipation ( Reported) Bisacodyl (Dulcolax Rectal) 10 Mg Supp.rect 10 MG RC DAILY PRN PRN For Constipation (Reported) Emollient Combination No.40 (Cetaphil) 226 Gm Lotion 1 APPLIC TOPICAL DAILY PRN PRN dry skin (Reported) Magnesium Hydroxide (Milk of Magnesia) 400 Mg/5 Ml Oral.susp 30 ML PO DAILY PRN PRN PRN (Reported) Followup Plan Discharge Diet: Heart Healthy Discharge Activity: No restrictions Follow-up Provider: Becki Miller MD Follow-up with PCP in: 1 week Time spent Greater than 30 minutes Ramesh Haney MD Sep 20, 2016 07:36 Ramesh Haney MD Sep 20, 2016 07:36
[2016-09-20] MEDS ORDERED: POTA10TA38 PO (07:39)
[2016-09-20] MEDS ORDERED: FIDA200T PO (07:39)
--- NOTE | 2016-09-20 08:32 | NUR ---
Called Trice Bryant at [facility] and let her know patient has discharge orders and I would need to have him reviewed for [facility]. Patient was paying privately before this admissions but I need to see if [employer] will approved. Updated OUTSIDE MACHINIST SUPERVISOR Addendum: 09/20/16 at 1111 by CRISTIANA GILLIAM CM Spoke with Trice Bryant CM at [facility] and she did not think patient met criteria for SNF. She has handed this off to her MD. She was give grandstephanie's number for formal denial. Faxed orders to [facility] and placed copy in chart. Updated OUTSIDE MACHINIST SUPERVISOR
[2016-09-20 14:30] VITALS: BP 112/65; PULSE 72; RESP 19; O2SAT 95
--- NOTE | 2016-09-20 14:42 | NUR ---
Arranged BLS transport for 1630 via [facility] returning to [facility]. Updated OFFICE SUPPORT SPECIALIST and charge master specialist
--- NOTE | 2016-09-20 15:02 | NUR ---
Social Work-discharge: Data:EMR reviewed. Pt is on day 7 of hospitalization for pneumonia per H&P. Pt is medically stable for discharge today. [place] confirmed with UR specialist that has denied pt and pt will return private pay senior care care. UR specialist faxed discharge information and informed [facility] of discharge time. UR specialist and SW looked at chart and feel like pt meets criteria to go via [facility]. UR specialist arranged transport for 1630. SW placed a call to haris Stein and informed him of discharge time. SW explained to Emil that SW cannot guarantee that insurance will cover the cost of BLS, haris agreeable to proceed. RN,UC,pt/family, and [facility] all updated and agreeable to plan. Assessment:Pt who resides at [facility]. Plan:Pt to discharge back to [facility] today via BLS at 1630. RN,UC,pt/family, and [facility] all updated and agreeable to plan. Radha Cai MSW
--- NOTE | 2016-09-20 15:15 | NUR ---
[facility] report called to admit nurse. Phone number to hospital given if they have any questions, none at this time. Body sheet in packet to go with pt to facility.
--- NOTE | 2016-09-20 16:43 | NUR ---
discharge report called in to admit nurse [facility]. pt transported to facility.
== END 2016-09-20 16:41 | DRG 871 ==
LOC: SED 10:17 → MPC 13:17
PROVIDERS: ADMIT Internal Medicine; ATTEND Internal Medicine
PROC: 4A033R1 Measurement of Arterial Saturation, Peripheral, Percutaneous Approach (ICD-10-PCS; principal; 2016-09-13)
DX: A41.9 Sepsis, unspecified organism (principal); J18.9 Pneumonia, unspecified organism; G93.40 Encephalopathy, unspecified; A04.7 Enterocolitis due to Clostridium difficile; K92.0 Hematemesis; N39.0 Urinary tract infection, site not specified; Z66 Do not resuscitate; Z87.891 Personal history of nicotine dependence; Z96.642 Presence of left artificial hip joint; G20 Parkinson's disease; F03.90 Unspecified dementia, unspecified severity, without behavioral disturbance, psychotic disturbance, mood disturbance, and anxiety; K56.41 Fecal impaction; E86.0 Dehydration; F32.9 Major depressive disorder, single episode, unspecified; Z87.440 Personal history of urinary (tract) infections; Y95 Nosocomial condition

== ENCOUNTER 2017-01-19 13:59 | Emergency (ER) | payer MEDICARE ==
[~2017-01-19 13:59] MED LIST changes: -DICL100G8 TOPICAL; +FIDA200T PO; -MULT1CAP33 PO; +POTA10TA38 PO; -RIVA1PAT TRANSDERM; -SPIR25TA3 PO; -SULI200T79 PO
[2017-01-19 14:05] VITALS: BP 113/69; PULSE 78; RESP 12; O2SAT 95
--- NOTE | 2017-01-19 14:25 | ED.REPORT ---
HPI- Male Date of Service Jan 19, 2017 ED Provider: History of Present Illness: dementia, unable to obtain hx. [facility] from [facility] reports needing to "pee" per nuring home, he pulled his catheter out and they were unable to replace it. Nursing Notes Stated Complaint: REPLACE CATHETER Chief Complaint: General Complaint Nursing Notes Reviewed: Yes Allergies: Coded Allergies: pregabalin (Verified Allergy, Unknown, unknown, 09/13/16) gabapentin (Verified Adverse Reaction, Severe, hallucinations, 09/13/16) Uncoded Allergies: FLAMOA (Allergy, Unknown, 01/14/14) Scheduled Aspirin (Aspirin) 81 Mg Tablet 81 MG PO QAM Cholecalciferol (Vitamin D3) (Vitamin D) 1,000 Unit Tablet 3,000 UNIT PO QAM Cyanocobalamin (Vitamin B12) 1,000 Mcg Tablet 1,000 MCG PO QAM Fidaxomicin (Dificid) 200 Mg Tablet 200 MG PO BID Potassium Chloride (Potassium Chloride) 10 Meq Tab.er.prt 10 MEQ PO TID Scheduled PRN Acetaminophen (Acetaminophen) 325 Mg Capsule 325-650 MG PO Q4-6H PRN PRN PRN Bisacodyl (Dulcolax) 5 Mg Tablet.dr 5 MG PO DAILY PRN PRN For Constipation Bisacodyl (Dulcolax Rectal) 10 Mg Supp.rect 10 MG RC DAILY PRN PRN For Constipation Emollient Combination No.40 (Cetaphil) 226 Gm Lotion 1 APPLIC TOPICAL DAILY PRN PRN dry skin Magnesium Hydroxide (Milk of Magnesia) 400 Mg/5 Ml Oral.susp 30 ML PO DAILY PRN PRN PRN General Time Seen by MD: 14:24 Transferred From: [facility] Chief Complaint Urinary catheter problem (pulled catheter out), Other Unable to Obtain Hx: Mental status (dementia, hx obtained from records) Onset Occurred: 5 - 8 hours ago Past Medical History Past Medical History Notes: Past Medical History 1. 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 2. Bilateral foot neuropathy, specifics unknown. 3. Depression. 4. Back surgery in 1984. 5. Known carotid stenosis. 6. Reported B12 deficiency. 7. Chronic edema with stasis changes. 8. History of left lower extremity cellulitis. 9. Bad varicose veins. 10. Known to have frequent falls. 11. Parkinsonism 12. Chronic Obstructive Uropathy, BPH (chronic Nunes) 13. ho recurrent C Diff Reports: Diabetes mellitus Reports: GI bleed, Urinary tract infection Past Surgical History right hip replacement Reports: Back/neck surgery Family History Noncontributory Smoking History Former Smoker Social History POLST indicates DNR in setting of arrest, otherwise limited interventions (dated 09-03-15) Resides at [facility] Alcohol Use: Denies alcohol use Other Social History: Good social support, Lives in alf, Local resident Occupation Retired real estate sales associate Ambulatory Status Wheelchair (needs garrett for transfer) Review of Systems Basic Review of Systems Eyes: Vision NL, No discharge Allergy / Immune: No allergy Psychiatric: Normal thought content Physical Exam Initial Vital Signs Vital Signs (First) Date Time Temp Pulse Resp B/P Pulse Ox O2 Delivery O2 Flow Rate FiO2 01/19/17 14:05 36.7 78 12 113/69 95 Room Air Initial VS: Reviewed, Vital signs normal General/Constitutional: Well-developed, Well-nourished Head / Eyes: Atraumatic, Normocephalic, PERRL ENT: Mucous membranes moist, Conjunctiva normal, No scleral icterus Neck: Supple, Non-tender, Full range of motion Respiratory: Breath sounds normal, Clear to auscultation, No respiratory distress Cardiovascular: Regular rate & rhythm, Heart sounds normal, Intact distal pulses Abdomen / GI: Soft, Non-tender, No guarding, No rebound, No distention Back: No CVA tenderness Lymphatic: No lymphadenopathy Extremities: Vascular intact, Neuro intact, No swelling, No tenderness Skin: Warm, Dry, No cyanosis Neurologic: Alert, Oriented, Nonfocal Psychiatric: Mood/affect normal, Behavior normal, Normal thought content General/Constitutional: Awake, Alert, No acute distress Abdomen: Atraumatic, Soft, Non-tender Procedures Procedure Notes: nursing staff placed catheter, urine draining without difficulty Re-Eval/Medical Decision Med Decision/Clinical Course 86 year old male with dementia presents to the ER for replacement of nunes catheter. Catheter replaced without difficulty, transported back to [facility]. Discharge & Departure Impression: Primary Impression: Difficulty with insertion of urinary catheter Disposition: Home Additional Instructions: The catheter has been replaced. the nurse here has spoken to the nurses at the nursing facility and provided some tips on how to get a catheter in. Return as needed. Referrals: Becki Miller MD (PCP) Maria E Billy MD EDSupervising Provider for APC: Jose Antonio Peraza MD copies to: Maria E Billy MD; Becki Miller MD, Sue ARNP Jan 19, 2017 14:25
[2017-01-19 15:52] VITALS: BP 108/70; PULSE 71; RESP 12; O2SAT 96
== END 2017-01-19 15:58 | disposition home or self-care (01) ==
LOC: SED 13:59
DX: T83.091A Other mechanical complication of indwelling urethral catheter, initial encounter (principal); Y84.6 Urinary catheterization as the cause of abnormal reaction of the patient, or of later complication, without mention of misadventure at the time of the procedure; Y93.89 Activity, other specified; Y92.89 Other specified places as the place of occurrence of the external cause; Y99.8 Other external cause status; E11.40 Type 2 diabetes mellitus with diabetic neuropathy, unspecified; G20 Parkinson's disease; F32.9 Major depressive disorder, single episode, unspecified; Z87.440 Personal history of urinary (tract) infections; Z79.82 Long term (current) use of aspirin; Z87.891 Personal history of nicotine dependence; Z88.8 Allergy status to other drugs, medicaments and biological substances